=== PATIENT | female | born 1945 | race Caucasian/White ===

== ENCOUNTER → 2018-01-18 08:39 | Outpatient (CLI) | payer MEDICARE, SELFPAY ==
[2018-01-18 10:52] LABS: Thyroid Stim Hormone (TSH) 1.61 uIU/mL (0.358-3.74)
[2018-01-19 09:03] LABS: Vitamin D,25 Hydroxy 46.4 ng/mL (29.95-100.01)
== END ==
PROVIDERS: Family Provider Family Medicine; PCP Family Medicine; Visit Provider Family Medicine
DX: E55.9 Vitamin D deficiency, unspecified (principal)
CPT/HCPCS: 36415; 82306; 84443

== ENCOUNTER → 2018-02-23 09:00 | Outpatient (CLI) | payer MEDICARE, SELFPAY ==
[2018-02-23 10:24] LABS: Absolute Lymphocyte Count 1.47 X10^3/ul (0.83-4.51); Absolute Neutrophil Count 4.8 X10^3/uL (2.0-7.7); Basophil# 0.03 X10^3/uL; Basophil% 0.4 % (0-1); Eosinophil# 0.08 X10^3/uL; Eosinophils% 1.2 % (0-5); Hematocrit 36.7 % (37-47); Hemoglobin 11.7 g/dl (12.0-15.0); Lymphocyte # 1.47 X10^3/ul (4.0); Lymphocyte % 21.4 % (19-41); Mean Corp Hgb Conc 31.9 g/gl (32-36); Mean Corpuscular Hgb 31.2 pg (27.0-32.0); Mean Corpuscular Volume 97.9 fL (81-99); Mean Platelet Vol. 10.3 fl (6.2-12.0); Monocyte# 0.53 X10^3/uL; Monocyte% 7.7 % (0-10); Neutrophil # 4.76 X10^3/uL (2.7-7.7); Neutrophil % 69.2 % (47-70); Platelet Count 332 K/mm3 (150-450); RBC Distribution Width CV 13.7 % (11.6-14.6); RBC Distribution Width SD 47.5 fl (35.1-43.9); Red Blood Count 3.75 M/mm3 (4.2-5.4); White Blood Count 6.9 K/mm3 (4.4-11.0)
[2018-02-23 10:35] LABS: POSITIVE COUNT NO; POSITIVE DIFFERENTIAL NO; POSITIVE MORPHOLOGY NO
== END ==
PROVIDERS: Family Provider Family Medicine; PCP Family Medicine; Visit Provider Family Medicine
DX: M25.50 Pain in unspecified joint (principal); R53.83 Other fatigue
CPT/HCPCS: 36415; 85025; 86141

== ENCOUNTER → 2018-03-01 08:59 | Outpatient (CLI) | payer MEDICARE, SELFPAY ==
[2018-03-02 11:27] LABS: ANTINUCLEAR ANTIBODIES DIRECT Negative (Negative)
== END ==
PROVIDERS: Family Provider Family Medicine; PCP Family Medicine; Visit Provider Family Medicine
DX: M25.50 Pain in unspecified joint (principal)
CPT/HCPCS: 36415; 86038

== ENCOUNTER → 2018-03-14 10:51 | Outpatient (CLI) | payer MEDICARE, SELFPAY ==
[2018-03-14 12:24] LABS: Absolute Lymphocyte Count 2.19 X10^3/ul (0.83-4.51); Basophil# 0.04 X10^3/uL; Basophil% 0.5 % (0-1); Eosinophil# 0.05 X10^3/uL; Eosinophils% 0.6 % (0-5); Hematocrit 38.1 % (37-47); Hemoglobin 12.1 g/dl (12.0-15.0); Lymphocyte # 2.19 X10^3/ul (4.0); Lymphocyte % 24.9 % (19-41); Mean Corp Hgb Conc 31.8 g/gl (32-36); Mean Corpuscular Hgb 30.5 pg (27.0-32.0); Monocyte% 5.7 % (0-10); Neutrophil # 5.99 X10^3/uL (2.7-7.7); Neutrophil % 68.2 % (47-70); Platelet Count 342 K/mm3 (150-450); RBC Distribution Width CV 13.6 % (11.6-14.6); RBC Distribution Width SD 47.9 fl (35.1-43.9); Red Blood Count 3.97 M/mm3 (4.2-5.4); White Blood Count 8.8 K/mm3 (4.4-11.0)
[2018-03-14 12:38] LABS: POSITIVE COUNT NO; POSITIVE DIFFERENTIAL NO; POSITIVE MORPHOLOGY NO
[2018-03-14 12:39] LABS: ALB/GLOB Ratio 0.9 RATIO (0.9-2.4); AST(SGOT) 22 U/L (15-37); Alanine Aminotransfer ALT/SGPT 23 U/L (13-56); Albumin, Serum 3.7 g/dL (3.2-5.0); Alkaline Phosphatase 77 U/L (45-117); Anion Gap 10 (5-15); BUN 12 mg/dL (7-18); BUN/Creat Ratio 19.4 RATIO (10-20); Calcium,Total 9.7 mg/dL (8.5-10.1); Chloride 105 mmol/L (98-107); Creatinine, Serum 0.62 mg/dL (0.55-1.02); EST Glomerular Filtration Rate 101 mL/min (>60); Est Glom Filt Rate - Afr Amer 123 mL/min (>60); Globulin 4.1 g/dL (2.2-4.2); Glucose 92 mg/dL (74-106); Protein, Total 7.8 g/dL (6.4-8.2); Rheumatoid Factor < 10.0 IU/mL (<15); Sodium Level 141 mmol/L (136-145); T4 Total, Thyroxin 9.2 ug/dL (4.8-13.9); Thyroid Stim Hormone (TSH) 1.97 uIU/mL (0.358-3.74)
[2018-03-14 12:47] LABS: Erythrocyte Sedimentation Rate 37 mm/hr (0-30)
[2018-03-14 12:57] LABS: Vitamin B12 458 pg/mL (211-911)
[2018-03-16 11:16] LABS: ANTINUCLEAR ANTIBODIES DIRECT Negative (Negative)
== END ==
PROVIDERS: Physician Assistant; Family Provider Family Medicine; PCP Family Medicine; Visit Provider Family Medicine
DX: R53.1 Weakness (principal); M79.641 Pain in right hand; M79.642 Pain in left hand
CPT/HCPCS: 36415; 80053; 82607; 84436; 84443; 85025; 85652; 86038; 86140; 86431

== ENCOUNTER → 2018-05-02 14:18 | Outpatient (CLI) | payer MEDICARE, SELFPAY ==
--- NOTE | 2018-05-02 14:20 | RAD_ITS ---
STUDY: X-RAY - PELVIS REASON FOR EXAM: Female, 72 years old. Bilateral hip pain. TECHNIQUE: One view of the pelvis was obtained. COMPARISON: None. FINDINGS: There is a non-specific bowel gas pattern. There is calcified phleboliths, calcified uterine fibroid and postsurgical changes in the mid-pelvis. There is generalized osteopenia. Normal bilateral iliac wings, sacroiliac joints and visualized sacrum. Normal visualized bilateral superior and inferior pubic rami. Normal pubic symphysis. Normal ischial tuberosities. 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 Electronically Signed: Ashwin Farrell MD at 17:32 EDT , Service support ,
[2018-05-02 16:17] LABS: Absolute Neutrophil Count 3.9 X10^3/uL (2.0-7.7); Basophil# 0.03 X10^3/uL; Basophil% 0.5 % (0-1); Eosinophil# 0.04 X10^3/uL; Eosinophils% 0.6 % (0-5); Hematocrit 39.8 % (37-47); Hemoglobin 12.9 g/dl (12.0-15.0); Lymphocyte % 29.6 % (19-41); Mean Corp Hgb Conc 32.4 g/gl (32-36); Mean Corpuscular Hgb 31.3 pg (27.0-32.0); Mean Corpuscular Volume 96.6 fL (81-99); Mean Platelet Vol. 10.4 fl (6.2-12.0); Monocyte# 0.52 X10^3/uL; Monocyte% 8.1 % (0-10); Neutrophil # 3.92 X10^3/uL (2.7-7.7); Platelet Count 326 K/mm3 (150-450); RBC Distribution Width SD 45.1 fl (35.1-43.9); Red Blood Count 4.12 M/mm3 (4.2-5.4); White Blood Count 6.4 K/mm3 (4.4-11.0)
[2018-05-02 16:19] LABS: POSITIVE COUNT NO; POSITIVE DIFFERENTIAL NO; POSITIVE MORPHOLOGY NO
[2018-05-02 16:36] LABS: AST(SGOT) 27 U/L (15-37); Alanine Aminotransfer ALT/SGPT 30 U/L (13-56); Albumin, Serum 3.8 g/dL (3.2-5.0); Alkaline Phosphatase 76 U/L (45-117); Anion Gap 10 (5-15); BUN 11 mg/dL (7-18); BUN/Creat Ratio 17.6 RATIO (10-20); Calcium,Total 10.1 mg/dL (8.5-10.1); Chloride 105 mmol/L (98-107); Creatinine, Serum 0.62 mg/dL (0.55-1.02); EST Glomerular Filtration Rate 100 mL/min (>60); Est Glom Filt Rate - Afr Amer 121 mL/min (>60); Globulin 3.8 g/dL (2.2-4.2); Glucose 88 mg/dL (74-106); Protein, Total 7.6 g/dL (6.4-8.2); Rheumatoid Factor < 10.0 IU/mL (<15); Sodium Level 142 mmol/L (136-145)
[2018-05-04 13:05] LABS: SJOGREN'S Anti-SS-A test < 0.2 AI (0.0-0.9); SJOGREN'S Anti-SS-B test 0.6 AI (0.0-0.9)
[2018-05-04 13:30] LABS: ANTINUCLEAR ANTIBODIES DIRECT Negative (Negative)
[2018-05-11 11:12] LABS: CCP IgG Antibodies 7 units (0-19); HEPATITIS B SURFACE AG Negative (Negative); HLA B27 Negative (.); Hep B Surface Antibodies Non Reactive (.); Hep C Antibodies 0.2 s/co ratio (0.0-0.9)
== END ==
PROVIDERS: Family Provider Family Medicine; PCP Family Medicine; Visit Provider Internal Medicine Rheumatology
DX: M06.4 Inflammatory polyarthropathy (principal); M79.7 Fibromyalgia; M18.0 Bilateral primary osteoarthritis of first carpometacarpal joints; M17.0 Bilateral primary osteoarthritis of knee; K21.9 Gastro-esophageal reflux disease without esophagitis
CPT/HCPCS: 36415; 72170; 80053; 81374; 85025; 86038; 86200; 86235; 86431; 86706; 86803; 87340

== ENCOUNTER → 2018-07-12 11:36 | Outpatient (CLI) | payer MEDICARE, SELFPAY ==
[2018-07-12 13:21] LABS: Absolute Lymphocyte Count 3.96 X10^3/ul (0.83-4.51); Absolute Neutrophil Count 7.7 X10^3/uL (2.0-7.7); Basophil# 0.04 X10^3/uL; Basophil% 0.3 % (0-1); Eosinophil# 0.09 X10^3/uL; Eosinophils% 0.7 % (0-5); Hematocrit 39.1 % (37-47); Hemoglobin 12.6 g/dl (12.0-15.0); Lymphocyte # 3.96 X10^3/ul (4.0); Lymphocyte % 31.4 % (19-41); Mean Corp Hgb Conc 32.2 g/gl (32-36); Mean Corpuscular Hgb 31.9 pg (27.0-32.0); Monocyte# 0.84 X10^3/uL; Monocyte% 6.7 % (0-10); Neutrophil # 7.65 X10^3/uL (2.7-7.7); Neutrophil % 60.7 % (47-70); Platelet Count 300 K/mm3 (150-450); RBC Distribution Width CV 15.4 % (11.6-14.6); Red Blood Count 3.95 M/mm3 (4.2-5.4); White Blood Count 12.6 K/mm3 (4.4-11.0)
[2018-07-12 13:25] LABS: POSITIVE COUNT NO; POSITIVE DIFFERENTIAL NO; POSITIVE MORPHOLOGY NO
[2018-07-12 13:31] LABS: ALB/GLOB Ratio 1.1 RATIO (0.9-2.4); AST(SGOT) 17 U/L (15-37); Alanine Aminotransfer ALT/SGPT 25 U/L (13-56); Albumin, Serum 3.6 g/dL (3.2-5.0); Alkaline Phosphatase 56 U/L (45-117); Anion Gap 11 (5-15); BUN 20 mg/dL (7-18); BUN/Creat Ratio 26.5 RATIO (10-20); Calcium,Total 9.3 mg/dL (8.5-10.1); Chloride 104 mmol/L (98-107); Creatinine, Serum 0.75 mg/dL (0.55-1.02); EST Glomerular Filtration Rate 80 mL/min (>60); Est Glom Filt Rate - Afr Amer 97 mL/min (>60); Globulin 3.2 g/dL (2.2-4.2); Glucose 95 mg/dL (74-106); Potassium 3.4 mmol/L (3.5-5.1); Protein, Total 6.8 g/dL (6.4-8.2); Sodium Level 142 mmol/L (136-145)
== END ==
PROVIDERS: Family Provider Family Medicine; PCP Family Medicine; Visit Provider Internal Medicine Rheumatology
DX: M06.4 Inflammatory polyarthropathy (principal); Z79.899 Other long term (current) drug therapy; M79.7 Fibromyalgia; M35.00 Sjogren syndrome, unspecified; M18.0 Bilateral primary osteoarthritis of first carpometacarpal joints; M17.0 Bilateral primary osteoarthritis of knee; K21.9 Gastro-esophageal reflux disease without esophagitis; E78.5 Hyperlipidemia, unspecified
CPT/HCPCS: 36415; 80053; 85025

== ENCOUNTER → 2018-09-26 10:08 | Outpatient (CLI) | payer MEDICARE, SELFPAY ==
[2018-09-26 12:16] LABS: Absolute Lymphocyte Count 2.64 X10^3/ul (0.83-4.51); Absolute Neutrophil Count 3.9 X10^3/uL (2.0-7.7); Basophil# 0.03 X10^3/uL; Basophil% 0.4 % (0-1); Eosinophil# 0.08 X10^3/uL; Eosinophils% 1.1 % (0-5); Hematocrit 38.6 % (37-47); Hemoglobin 12.4 g/dl (12.0-15.0); Lymphocyte # 2.64 X10^3/ul (4.0); Lymphocyte % 36.5 % (19-41); Mean Corp Hgb Conc 32.1 g/gl (32-36); Mean Corpuscular Hgb 33.5 pg (27.0-32.0); Mean Corpuscular Volume 104.3 fL (81-99); Mean Platelet Vol. 10.3 fl (6.2-12.0); Monocyte# 0.58 X10^3/uL; Neutrophil # 3.89 X10^3/uL (2.7-7.7); Neutrophil % 53.9 % (47-70); Platelet Count 291 K/mm3 (150-450); RBC Distribution Width CV 13.4 % (11.6-14.6); RBC Distribution Width SD 49.8 fl (35.1-43.9); White Blood Count 7.2 K/mm3 (4.4-11.0)
[2018-09-26 12:22] LABS: POSITIVE COUNT NO; POSITIVE DIFFERENTIAL NO; POSITIVE MORPHOLOGY NO
[2018-09-26 12:45] LABS: ALB/GLOB Ratio 1.2 RATIO (0.9-2.4); AST(SGOT) 24 U/L (15-37); Alanine Aminotransfer ALT/SGPT 28 U/L (13-56); Albumin, Serum 3.6 g/dL (3.2-5.0); Alkaline Phosphatase 60 U/L (45-117); Anion Gap 10 (5-15); BUN 11 mg/dL (7-18); BUN/Creat Ratio 14.9 RATIO (10-20); Calcium,Total 9.3 mg/dL (8.5-10.1); Chloride 107 mmol/L (98-107); Creatinine, Serum 0.74 mg/dL (0.55-1.02); EST Glomerular Filtration Rate 83 mL/min (>60); Est Glom Filt Rate - Afr Amer 100 mL/min (>60); Globulin 3.1 g/dL (2.2-4.2); Glucose 90 mg/dL (74-106); Potassium 3.7 mmol/L (3.5-5.1); Protein, Total 6.7 g/dL (6.4-8.2); Sodium Level 143 mmol/L (136-145)
--- OUTSIDE RECORDS SUMMARY | 2018-11-19 15:04 | XMS RPT_ITS ---
:1945 Author Organization OHIP Care Team Providers Name Role Phone NICO RAINEY Referring Unavailable Nico Rainey Attending Unavailable Nico Rainey Referring Unavailable Nico Rainey Primary Care Unavailable Nico Rainey Attending Unavailable Nico Rainey Primary Care Unavailable Nico Rainey Attending Unavailable Nico Rainey Primary Care Unavailable Nico Rainey Primary Care Unavailable Ty Costa Attending Unavailable Ty Costa Referring Unavailable Jessa Torres Attending Unavailable Jessa Torres Referring Unavailable Nico Rainey Primary Care Unavailable Jessa Torres Attending Unavailable Jessa Torres Referring Unavailable Nico Rainey Primary Care Unavailable Jessa Torres Attending Unavailable Jessa Torres Referring Unavailable Nico Rainey Primary Care Unavailable PROBLEMS PROBLEMS DATE TYPE CONDITION / CODE ATTENDING STATUS SOURCE 09/26/2018 Unknown M06.4 - Inflammatory Vellanki, 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 / Community M06.4(ICD-10) Hospital Repository 09/26/2018 Unknown M79.7 - Fibromyalgia Veladi Jessa Active [facility] / M79.7(ICD-10) Community Hospital Repository 09/26/2018 Unknown M18.0 - Bilateral Vellanhenrry, Jessa Active [facility] primary Community osteoarthritis of Hospital first carpometacarpal Repository joints / M18.0(ICD-10) 09/26/2018 Unknown M17.0 - Bilateral Vellanki, Jessa Active [facility] primary Community osteoarthritis of Hospital knee / M17.0(ICD-10) Repository 09/26/2018 Unknown K21.9 - Vellanhenrry Jessa Active [facility] Gastro-esophageal Community reflux disease Hospital without esophagitis / Repository K21.9(ICD-10) 09/26/2018 Unknown Z79.899 - Other long Melissa Jessa Active [facility] term (current) drug Community therapy / Hospital Z79.899(ICD-10) Repository 09/26/2018 Unknown E78.5 - Vellanhenrry Jessa Active [facility] Hyperlipidemia, Community unspecified / Hospital E78.5(ICD-10) Repository 09/26/2018 Unknown 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 Hospital Repository 03/03/2018 Active Unknown / NA Active [facility] UNK(Unknown) [facility] [place] Repository 02/23/2018 Unknown M25.50 - Pain in Mercedes Nico Active [facility] unspecified joint / Community M25.50(ICD-10) Hospital Repository 02/23/2018 Unknown R53.83 - Other Nico Rainey Active [facility] fatigue / Community R53.83(ICD-10) Hospital Repository 01/18/2018 Unknown E55.9 - Vitamin D Nico Rainey Active [facility] deficiency, Community unspecified / Hospital E55.9(ICD-10) Repository 01/18/2018 Unknown 268.9 - Unspecified Nico Rainey Active [facility] vitamin D deficiency Community / 268.9(ICD-9) Hospital Repository PROCEDURES PROCEDURES No Procedure Records FoundRESULTS RESULTS CBC W/DIFF, AUTOMATED Collected: 09/26/2018 Status: F Source: [place] 10:12 AM [facility] REPOSITORY TYPE CODE TESTS RESULT OUT OF RANGE REFERENCE UNITS LAB L100.1000 4.4-11.0 K/mm3 Normal WBC 7.2 LAB L100.1200 4.2-5.4 M/mm3 Low RBC 3.70 LAB L100.1300 12.0-15.0 g/dl Normal HGB 12.4 LAB L100.1400 37-47 % Normal HCT 38.6 LAB L100.1500 81-99 fL High MCV 104.3 LAB L100.1600 27.0-32.0 pg High MCH 33.5 LAB L100.1700 32-36 g/gl Normal MCHC 32.1 LAB L100.1810 11.6-14.6 % Normal RDW CV 13.4 LAB L100.1820 35.1-43.9 fl High RDW SD 49.8 LAB L100.1900 150-450 K/mm3 Normal PLT 291 LAB L100.2000 6.2-12.0 fl Normal MPV 10.3 LAB L100.2100 47-70 % Normal NEUT% 53.9 LAB L100.2200 19-41 % Normal LY% 36.5 LAB L100.2300 0-10 % Normal MONO% 8.0 LAB L100.2400 0-5 % Normal EO% 1.1 LAB L100.2500 0-1 % Normal BASO% 0.4 LAB L100.2550 0.0-0.9 % Normal IM GRAN % 0.100 Result Comment: IG% - Immature Granulocytes (promyelocytes, myelocytes and metamyelocytes) > 1% indicates that a LEFT SHIFT is Present. LAB L100.2620 2.0-7.7 X10 3/uL Normal Absolute Neut 3.9 LAB L100.2720 0.83-4.51 X10 3/ul Normal Absolute Lymph 2.64 Performed By: #### L100.0100 #### [facility] [address] [place], [address] COMPREHENSIVE METABOLIC Collected: 09/26/2018 Status: F Source: [place] [facility] 10:12 AM [facility] REPOSITORY TYPE CODE TESTS RESULT OUT OF RANGE REFERENCE UNITS LAB L501.0100 74-106 mg/dL Normal GLU 90 Result Comment: Please note revised GLUCOSE reference range effective 2017. LAB L501.1000 7-18 mg/dL Normal BUN 11 LAB L501.1100 0.55-1.02 mg/dL Normal CREAT,SERUM 0.74 Result Comment: The validity of the calculated GFR AND GFRAA in patients over 70 years has not been determined. Clinical correlation is essential. LAB L501.1110 >60 mL/min Normal EST GFR 83 Result Comment: Non- GFR Calc LAB L501.1115 >60 mL/min Normal EST GFR - AA 100 Result Comment: GFR Calc LAB L501.1300 10-20 RATIO Normal BUN/CRE 14.9 LAB L501.1500 6.4-8.2 g/dL T Normal PROT 6.7 LAB L501.1800 3.2-5.0 g/dL Normal ALB 3.6 LAB L501.1950 2.2-4.2 g/dL Normal GLOB 3.1 LAB L501.2000 0.9-2.4 RATIO Normal A/G 1.2 LAB L501.2200 8.5-10.1 mg/dL CA Normal 9.3 LAB L501.4100 15-37 U/L Normal AST 24 LAB L501.4305 45-117 U/L Normal ALK P 60 LAB L501.4405 13-56 U/L Normal ALT 28 LAB L501.4600 0.20-1.00 mg/dL T Normal BILI 0.50 LAB L501.5300 136-145 mmol/L NA Normal 143 LAB L501.5600 3.5-5.1 mmol/L K Normal 3.7 LAB L501.5900 98-107 mmol/L CL Normal 107 LAB L501.6100 21.0-32.0 mmol/L Normal CO2 26.0 LAB L501.6200 5-15 Normal GAP 10 Performed By: #### L500.4050 #### [facility] [address] [place], [address] CBC W/DIFF, AUTOMATED Collected: 07/12/2018 Status: F Source: [place] 11:43 AM [facility] REPOSITORY TYPE CODE TESTS RESULT OUT OF RANGE REFERENCE UNITS LAB L100.1000 4.4-11.0 K/mm3 High WBC 12.6 LAB L100.1200 4.2-5.4 M/mm3 Low RBC 3.95 LAB L100.1300 12.0-15.0 g/dl Normal HGB 12.6 LAB L100.1400 37-47 % Normal HCT 39.1 LAB L100.1500 81-99 fL Normal MCV 99.0 LAB L100.1600 27.0-32.0 pg Normal MCH 31.9 LAB L100.1700 32-36 g/gl Normal MCHC 32.2 LAB L100.1810 11.6-14.6 % High RDW CV 15.4 LAB L100.1820 35.1-43.9 fl High RDW SD 56.0 LAB L100.1900 150-450 K/mm3 Normal PLT 300 LAB L100.2000 6.2-12.0 fl Normal MPV 10.0 LAB L100.2100 47-70 % Normal NEUT% 60.7 LAB L100.2200 19-41 % Normal LY% 31.4 LAB L100.2300 0-10 % Normal MONO% 6.7 LAB L100.2400 0-5 % Normal EO% 0.7 LAB L100.2500 0-1 % Normal BASO% 0.3 LAB L100.2550 0.0-0.9 % Normal IM GRAN % 0.200 Result Comment: IG% - Immature Granulocytes (promyelocytes, myelocytes and metamyelocytes) > 1% indicates that a LEFT SHIFT is Present. LAB L100.2620 2.0-7.7 X10 3/uL Normal Absolute Neut 7.7 LAB L100.2720 0.83-4.51 X10 3/ul Normal Absolute Lymph 3.96 Performed By: #### L100.0100 #### [facility] [address] [place], [address] COMPREHENSIVE METABOLIC Collected: 07/12/2018 Status: F Source: [place] [facility] 11:43 AM [facility] REPOSITORY TYPE CODE TESTS RESULT OUT OF RANGE REFERENCE UNITS LAB L501.0100 74-106 mg/dL Normal GLU 95 Result Comment: Please note revised GLUCOSE reference range effective 2017. LAB L501.1000 7-18 mg/dL High BUN 20 LAB L501.1100 0.55-1.02 mg/dL Normal CREAT,SERUM 0.75 Result Comment: The validity of the calculated GFR AND GFRAA in patients over 70 years has not been determined. Clinical correlation is essential. LAB L501.1110 >60 mL/min Normal EST GFR 80 Result Comment: Non- GFR Calc LAB L501.1115 >60 mL/min Normal EST GFR - AA 97 Result Comment: GFR Calc LAB L501.1300 10-20 RATIO High BUN/CRE 26.5 LAB L501.1500 6.4-8.2 g/dL T Normal PROT 6.8 LAB L501.1800 3.2-5.0 g/dL Normal ALB 3.6 LAB L501.1950 2.2-4.2 g/dL Normal GLOB 3.2 LAB L501.2000 0.9-2.4 RATIO Normal A/G 1.1 LAB L501.2200 8.5-10.1 mg/dL CA Normal 9.3 LAB L501.4100 15-37 U/L Normal AST 17 LAB L501.4305 45-117 U/L Normal ALK P 56 LAB L501.4405 13-56 U/L Normal ALT 25 LAB L501.4600 0.20-1.00 mg/dL T Normal BILI 0.40 LAB L501.5300 136-145 mmol/L NA Normal 142 LAB L501.5600 3.5-5.1 mmol/L Low K 3.4 LAB L501.5900 98-107 mmol/L CL Normal 104 LAB L501.6100 21.0-32.0 mmol/L Normal CO2 27.0 LAB L501.6200 5-15 Normal GAP 11 Performed By: #### L500.4050 #### [facility] [address] [place], [place], [id number] CBC W/DIFF, AUTOMATED Collected: 05/02/2018 Status: F Source: [place] 2:28 PM [facility] REPOSITORY TYPE CODE TESTS RESULT OUT OF RANGE REFERENCE UNITS LAB L100.1000 4.4-11.0 K/mm3 Normal WBC 6.4 LAB L100.1200 4.2-5.4 M/mm3 Low RBC 4.12 LAB L100.1300 12.0-15.0 g/dl Normal HGB 12.9 LAB L100.1400 37-47 % Normal HCT 39.8 LAB L100.1500 81-99 fL Normal MCV 96.6 LAB L100.1600 27.0-32.0 pg Normal MCH 31.3 LAB L100.1700 32-36 g/gl Normal MCHC 32.4 LAB L100.1810 11.6-14.6 % Normal RDW CV 13.0 LAB L100.1820 35.1-43.9 fl High RDW SD 45.1 LAB L100.1900 150-450 K/mm3 Normal PLT 326 LAB L100.2000 6.2-12.0 fl Normal MPV 10.4 LAB L100.2100 47-70 % Normal NEUT% 61.0 LAB L100.2200 19-41 % Normal LY% 29.6 LAB L100.2300 0-10 % Normal MONO% 8.1 LAB L100.2400 0-5 % Normal EO% 0.6 LAB L100.2500 0-1 % Normal BASO% 0.5 LAB L100.2550 0.0-0.9 % Normal IM GRAN % 0.200 Result Comment: IG% - Immature Granulocytes (promyelocytes, myelocytes and metamyelocytes) > 1% indicates that a LEFT SHIFT is Present. LAB L100.2620 2.0-7.7 X10 3/uL Normal Absolute Neut 3.9 LAB L100.2720 0.83-4.51 X10 3/ul Normal Absolute Lymph 1.90 Performed By: #### L100.0100 #### [facility] [address] [place], [address] COMPREHENSIVE METABOLIC Collected: 05/02/2018 Status: F Source: [facility] 2:28 PM [facility] REPOSITORY TYPE CODE TESTS RESULT OUT OF RANGE REFERENCE UNITS LAB L501.0100 74-106 mg/dL Normal GLU 88 Result Comment: Please note revised GLUCOSE reference range effective 2017. LAB L501.1000 7-18 mg/dL Normal BUN 11 LAB L501.1100 0.55-1.02 mg/dL Normal CREAT,SERUM 0.62 Result Comment: The validity of the calculated GFR AND GFRAA in patients over 70 years has not been determined. Clinical correlation is essential. LAB L501.1110 >60 mL/min Normal EST GFR 100 Result Comment: Non- GFR Calc LAB L501.1115 >60 mL/min Normal EST GFR - AA 121 Result Comment: GFR Calc LAB L501.1300 10-20 RATIO Normal BUN/CRE 17.6 LAB L501.1500 6.4-8.2 g/dL T Normal PROT 7.6 LAB L501.1800 3.2-5.0 g/dL Normal ALB 3.8 LAB L501.1950 2.2-4.2 g/dL Normal GLOB 3.8 LAB L501.2000 0.9-2.4 RATIO Normal A/G 1.0 LAB L501.2200 8.5-10.1 mg/dL CA Normal 10.1 LAB L501.4100 15-37 U/L Normal AST 27 LAB L501.4305 45-117 U/L Normal ALK P 76 LAB L501.4405 13-56 U/L Normal ALT 30 LAB L501.4600 0.20-1.00 mg/dL T Normal BILI 0.30 LAB L501.5300 136-145 mmol/L NA Normal 142 LAB L501.5600 3.5-5.1 mmol/L K Normal 4.0 LAB L501.5900 98-107 mmol/L CL Normal 105 LAB L501.6100 21.0-32.0 mmol/L Normal CO2 27.0 LAB L501.6200 5-15 Normal GAP 10 Performed By: #### L500.4050, L505.7010 #### [facility] [address] [place], [place], [id number] RHEUMATOID FACTOR Collected: 05/02/2018 Status: F Source: [place] 2:28 PM [facility] REPOSITORY TYPE CODE TESTS RESULT OUT OF RANGE REFERENCE UNITS LAB L505.7010 <15 IU/mL Normal RHEUMATOID FAC < 10.0 Performed By: #### L500.4050, L505.7010 #### [facility] [address] [place], [place], [id number] ANTINUCLEAR ANTIBODIES Collected: 05/02/2018 Status: F Source: [place] DIRECT 2:28 PM [facility] REPOSITORY TYPE CODE TESTS RESULT OUT OF RANGE REFERENCE UNITS LAB L3100.5475 Negative Normal Negative KATHARINA-DIRECT Result Comment: Performed at: - [address] [id number] Corporate Development Manager: Robe Quezada PhD, Phone: [phone] Performed By: #### L3100.5475, L3100.9100 #### [facility] (refer to report for specific site) refer to report for address and phone number SJOGREN'S ANTIBODIES Collected: 05/02/2018 Status: F Source: [place] A/B 2:28 PM [facility] REPOSITORY TYPE CODE TESTS RESULT OUT OF RANGE REFERENCE UNITS LAB L3100.9200 0.0-0.9 AI Normal Anti-SS-A < 0.2 LAB L3100.9300 0.0-0.9 AI Normal Anti-SS-B 0.6 Performed By: #### L3100.5475, L3100.9100 #### [facility] (refer to report for specific site) refer to report for address and phone number HEPATITIS B SURFACE Collected: 05/02/2018 Status: F Source: [place] AG 2:28 PM [facility] REPOSITORY TYPE CODE TESTS RESULT OUT OF RANGE REFERENCE UNITS LAB L3100.0400 Negative Normal HB Negative SURF AG Result Comment: Performed at: [facility] [address] [id number] Corporate Development Manager: Robe Quezada PhD, Phone: [phone] Performed at: 2 - [address] [id number] Corporate Development Manager: Luis Alfredo Saleem PhD, Phone: [phone] Performed at: - [address] [id number] Corporate Development Manager: Shiraz Joya MD, Phone: [phone] Performed By: #### L3100.0390, L3100.0528, L3100.0625, L3410.1400, L4600.0100 #### [facility] (refer to report for specific site) refer to report for address and phone number HEP B SURFACE Collected: 05/02/2018 Status: F Source: [place] ANTIBODIES 2:28 PM [facility] REPOSITORY TYPE CODE TESTS RESULT OUT OF RANGE REFERENCE UNITS LAB L3100.0528 . Normal Hep B Non Reactive Kane AB Result Comment: Non Reactive: Inconsistent with immunity, less than 10 mIU/mL Reactive: Consistent with immunity, greater than 9.9 mIU/mL Performed By: #### L3100.0390, L3100.0528, L3100.0625, L3410.1400, L4600.0100 #### [facility] (refer to report for specific site) refer to report for address and phone number HEPATITIS C ANTIBODIES Collected: 05/02/2018 Status: F Source: [place] 2:28 [facility] REPOSITORY TYPE CODE TESTS RESULT OUT OF RANGE REFERENCE UNITS LAB L3100.0650 0.0-0.9 s/co ratio Normal HEP C AB 0.2 Result Comment: Negative: < 0.8 Indeterminate: 0.8 - 0.9 Positive: > 0.9 The CDC recommends that a positive HCV antibody result be followed up with a HCV Nucleic Acid Amplification test (091933). Performed By: #### L3100.0390, L3100.0528, L3100.0625, L3410.1400, L4600.0100 #### [facility] (refer to report for specific site) refer to report for address and phone number HLA B27 Collected: 05/02/2018 Status: F Source: [place] 2:28 [facility] REPOSITORY TYPE CODE TESTS RESULT OUT OF RANGE REFERENCE UNITS LAB L3410.1500 . Normal HLA Negative B27 Result Comment: HLA-B*27 Negative B27 allele interpretation for all loci based on IMGT/HLA database version 3.27 This test was developed and its performance characteristics determined by [facility]. It has not been cleared or approved by the Food and Drug Administration. [facility] CLIA ID Number [id number] This test was performed using PCR (Polymerase Chain Reaction)/SSOP (Sequence Specific Oligonucleotide Probes) technique. SBT (Sequence Based Typing) and/or SSP (Sequence Specific Primers) may be used as supplemental methods when necessary. Please contact [facility] Customer Service at if you have any questions. Director of [facility] Laboratory Dr Luis Alfredo Saleem, PhD Performed By: #### L3100.0390, L3100.0528, L3100.0625, L3410.1400, L4600.0100 #### [facility] (refer to report for specific site) refer to report for address and phone number CCP IGG ANTIBODIES Collected: 05/02/2018 Status: F Source: [place] 2:28 PM [facility] REPOSITORY TYPE CODE TESTS RESULT OUT OF RANGE REFERENCE UNITS LAB L4600.0100 0-19 units Normal ANTI-CCP 7 188119 Result Comment: Negative <20 Weak positive 20 - 39 Moderate positive 40 - 59 Strong positive >59 Performed By: #### L3100.0390, L3100.0528, L3100.0625, L3410.1400, L4600.0100 #### [facility] (refer to report for specific site) refer to report for address and phone number PELVIS 1 OR 2 VIEWS Observed: 05/02/2018 Status: F Source: [place] 2:21 PM [facility] REPOSITORY [facility] Services [address] [place] [address] Pelvis 1 or 2 Views MR#: [id number] Acct: [id number] Name: HEYDI NGUYEN Rep #: [id number] : 1945 F 72 From: Ashwin Farrell MD PCP: Nico Rainey MD Status: REG CLI Study: Pelvis 1 or 2 Views Date of Exam: 05/02/18 Exam# [id number] Ordering Dr: Jessa Torres MD STUDY: X-RAY - PELVIS REASON FOR EXAM: Female, 72 years old. Bilateral hip pain. TECHNIQUE: One view of the pelvis was obtained. COMPARISON: None. FINDINGS: There is a non-specific bowel gas pattern. There is calcified phleboliths, calcified uterine fibroid and postsurgical changes in the mid-pelvis. There is generalized osteopenia. Normal bilateral iliac wings, sacroiliac joints and visualized sacrum. Normal visualized bilateral superior and inferior pubic rami. Normal pubic symphysis. Normal ischial tuberosities. 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 Electronically Signed: Ashwin Farrell MD at 17:32 EDT , Service support , CC: Jessa Torres MD; Nico Rainey MD Painter: Signed CBC W/DIFF, AUTOMATED Collected: 03/14/2018 Status: F Source: [place] 11:04 AM [facility] REPOSITORY TYPE CODE TESTS RESULT OUT OF RANGE REFERENCE UNITS LAB L100.1000 4.4-11.0 K/mm3 Normal WBC 8.8 LAB L100.1200 4.2-5.4 M/mm3 Low RBC 3.97 LAB L100.1300 12.0-15.0 g/dl Normal HGB 12.1 LAB L100.1400 37-47 % Normal HCT 38.1 LAB L100.1500 81-99 fL Normal MCV 96.0 LAB L100.1600 27.0-32.0 pg Normal MCH 30.5 LAB L100.1700 32-36 g/gl Low MCHC 31.8 LAB L100.1810 11.6-14.6 % Normal RDW CV 13.6 LAB L100.1820 35.1-43.9 fl High RDW SD 47.9 LAB L100.1900 150-450 K/mm3 Normal PLT 342 LAB L100.2000 6.2-12.0 fl Normal MPV 10.0 LAB L100.2100 47-70 % Normal NEUT% 68.2 LAB L100.2200 19-41 % Normal LY% 24.9 LAB L100.2300 0-10 % Normal MONO% 5.7 LAB L100.2400 0-5 % Normal EO% 0.6 LAB L100.2500 0-1 % Normal BASO% 0.5 LAB L100.2550 0.0-0.9 % Normal IM GRAN % 0.100 Result Comment: IG% - Immature Granulocytes (promyelocytes, myelocytes and metamyelocytes) > 1% indicates that a LEFT SHIFT is Present. LAB L100.2620 2.0-7.7 X10 3/uL Normal Absolute Neut 6.0 LAB L100.2720 0.83-4.51 X10 3/ul Normal Absolute Lymph 2.19 Performed By: #### L100.0100, L101.9900 #### [facility] [address] [place], [address] ERYTHROCYTE SED RATE Collected: 03/14/2018 Status: F Source: [place] 11:04 AM [facility] REPOSITORY TYPE CODE TESTS RESULT OUT OF RANGE REFERENCE UNITS LAB L102.0000 0-30 mm/hr High SED RATE 37 Performed By: #### L100.0100, L101.9900 #### [facility] [address] [place], [address] COMPREHENSIVE METABOLIC Collected: 03/14/2018 Status: F [facility] AM [facility] REPOSITORY TYPE CODE TESTS RESULT OUT OF RANGE REFERENCE UNITS LAB L501.0100 74-106 mg/dL Normal GLU 92 Result Comment: Please note revised GLUCOSE reference range effective 2017. LAB L501.1000 7-18 mg/dL Normal BUN 12 LAB L501.1100 0.55-1.02 mg/dL Normal CREAT,SERUM 0.62 Result Comment: The validity of the calculated GFR AND GFRAA in patients over 70 years has not been determined. Clinical correlation is essential. LAB L501.1110 >60 mL/min Normal EST GFR 101 Result Comment: Non- GFR Calc LAB L501.1115 >60 mL/min Normal EST GFR - AA 123 Result Comment: GFR Calc LAB L501.1300 10-20 RATIO Normal BUN/CRE 19.4 LAB L501.1500 6.4-8.2 g/dL T Normal PROT 7.8 LAB L501.1800 3.2-5.0 g/dL Normal ALB 3.7 LAB L501.1950 2.2-4.2 g/dL Normal GLOB 4.1 LAB L501.2000 0.9-2.4 RATIO Normal A/G 0.9 LAB L501.2200 8.5-10.1 mg/dL CA Normal 9.7 LAB L501.4100 15-37 U/L Normal AST 22 LAB L501.4305 45-117 U/L Normal ALK P 77 LAB L501.4405 13-56 U/L Normal ALT 23 LAB L501.4600 0.20-1.00 mg/dL T Normal BILI 0.40 LAB L501.5300 136-145 mmol/L NA Normal 141 LAB L501.5600 3.5-5.1 mmol/L K Normal 4.0 LAB L501.5900 98-107 mmol/L CL Normal 105 LAB L501.6100 21.0-32.0 mmol/L Normal CO2 26.0 LAB L501.6200 5-15 Normal GAP 10 Performed By: #### L500.4050, L501.6710, L501.9310, L501.9520, L505.7010 #### [facility] [address] [place], [address] CRP Collected: 03/14/2018 Status: F Source: [place] 11:04 AM [facility] REPOSITORY TYPE CODE TESTS RESULT OUT OF RANGE REFERENCE UNITS LAB L501.6710 0.0-3.0 mg/L High 28.80 C-REACTIVE PROT Result Comment: C-Reactive Protein (CRP) provides useful information for the diagnosis, therapy and monitoring of inflammatory processes and associated diseases. For the evaluation of Relative Risk for Cardiovascular Disease, a High Sensitivity CRP (HSCRP) should be ordered. Performed By: #### L500.4050, L501.6710, L501.9310, L501.9520, L505.7010 #### [facility] [address] [place], [place], [id number] T4 TOTAL, THYROXIN Collected: 03/14/2018 Status: F Source: [place] 11:04 AM [facility] REPOSITORY TYPE CODE TESTS RESULT OUT OF RANGE REFERENCE UNITS LAB L501.9310 4.8-13.9 ug/dL T4 Normal THYROXIN 9.2 Performed By: #### L500.4050, L501.6710, L501.9310, L501.9520, L505.7010 #### [facility] [address] [place], [place], [address] THYROID STIM HORMONE Collected: 03/14/2018 Status: F Source: [place] ([facility]) 11:04 AM [facility] REPOSITORY TYPE CODE TESTS RESULT OUT OF RANGE REFERENCE UNITS LAB L501.9520 0.358-3.74 uIU/mL Normal TSH 1.97 Performed By: #### L500.4050, L501.6710, L501.9310, L501.9520, L505.7010 #### [facility] [address] [place], [address] RHEUMATOID FACTOR Collected: 03/14/2018 Status: F Source: [place] 11:04 AM [facility] REPOSITORY TYPE CODE TESTS RESULT OUT OF RANGE REFERENCE UNITS LAB L505.7010 <15 IU/mL Normal RHEUMATOID FAC < 10.0 Performed By: #### L500.4050, L501.6710, L501.9310, L501.9520, L505.7010 #### [facility] [address] [place], [address] VITAMIN B12 Collected: 03/14/2018 Status: F Source: [place] 11:04 AM [facility] REPOSITORY TYPE CODE TESTS RESULT OUT OF RANGE REFERENCE UNITS LAB L503.0105 211-911 pg/mL Normal Vitamin B12 458 Performed By: #### L503.0105 #### [facility] [address] [place], [address] ANTINUCLEAR ANTIBODIES Collected: 03/14/2018 Status: F Source: [place] [facility] 11:04 AM [facility] REPOSITORY TYPE CODE TESTS RESULT OUT OF RANGE REFERENCE UNITS LAB L3100.5475 Negative Normal Negative KATHARINA-DIRECT Result Comment: Performed at: - [facility] [id number] Corporate Development Manager: Robe Quezada PhD, Phone: [phone] Performed By: #### L3100.5475 #### [facility] (refer to report for specific site) refer to report for address and phone number [facility] Observed: 03/03/2018 Status: COMPLETED Source: [place] 9:22 AM [facility] REPOSITORY HNO ID: [id number] Author: Coordinator, Mammography Service: (none) Author Type: Physician Type: Letter Filed: 03/07/2018 11:31 PM Note Text: March 03, 2018 PID: [id number] Heyid Nguyen [address] [place] [id number] Dear Ms. Nguyen, We are pleased to inform you that the results of your recent breast imaging exam on 03/03/2018 are normal. Early detection of cancer is very important. We also understand recommendations regarding breast cancer screening are controversial. Please discuss with your primary care provider which strategy is best for you and whether a mammogram is right for you. Your imaging studies and report will be kept on file at [facility] as part of your permanent medical record and are available for your continuing care. Thank you for allowing us to help in meeting your health care needs. Sincerely, Dr. Smith Interpreting Radiologist [facility] (Normal over 40) [facility] SCREENING Observed: 03/03/2018 Status: F Source: [place] 9:18 AM [facility] REPOSITORY * * *Final Report* * * DATE OF EXAM: Mar 03 2018 9:18AM [facility] [id number] - [facility] SCREENING / PROCEDURE REASON: Routine Screening * * * * Physician Interpretation * * * * RESULT: #[id number] - [facility] SCREENING BILATERAL DIGITAL SCREENING MAMMOGRAM WITH CAD: 03/03/2018 HISTORY: Screening Mammogram - patient reports NO breast symptoms /priors available for comparison. RESULT: TECHNIQUE: The study was acquired using full field digital technology and interpreted from soft copy. Current study was also evaluated with a Computer Aided Detection (CAD). Comparison is made to exams dated: 03/01/2017 mammogram, 02/25/2016 mammogram, and 02/20/2015 mammogram - [facility]. There are scattered fibroglandular elements in both breasts. No significant masses, calcifications, or other findings are seen in either breast. There has been no significant interval change. IMPRESSION: NEGATIVE There is no mammographic evidence of malignancy. A 1 year screening mammogram is recommended. The exam was reviewed by a staff physician. dann Bryant M.D., M.D./kendrick:03/03/2018 09:22:22 Four Slide Machine Operator: Merlyn JIMENEZ(Shankar)(Stacey), [facility] letter sent: Normal over 40 Mammogram BI-RADS: 1 Negative Painter: Kendrick Transcribe Date/Time: Mar 03 2018 9:02A Dictated by: ARABELLA VALERIO MD This examination was interpreted and the report reviewed and electronically signed by: ROSA MARIA SMITH MD on Mar 03 2018 9:22AM EST [id number] PROGRESS Observed: 03/03/2018 Status: COMPLETED Source: [place] 8:59 AM [facility] REPOSITORY HNO ID: [id number] Author: Geneva Bacon Service: (none) Author Type: (none) Type: Progress Notes Filed: 03/03/2018 9:00 AM Note Text: Radiology Service Progress Note PATIENT NAME: Heydi Nguyen DATE OF SERVICE: March 03, 2018 TIME: 9:00 AM PATIENT IDENTITY VERIFICATION COMPLETED USING TWO (2) METHODS: Patient confirmed name verbally and Date of . PATIENT GENDER DATA: Female. status: : No status: NO. PATIENT RELEVANT IMPLANT DATA REVIEWED: Not Applicable RADIOLOGY DEPARTMENT: [facility] DATA: Not applicable SIGNED BY: Geneva Jimenez March 03, 2018 9:00 AM ANTINUCLEAR ANTIBODIES Collected: 03/01/2018 Status: F Source: [place] DIRECT 9:00 AM [facility] REPOSITORY Order Comment: Order Date: 02/23/18 Order Info: 0270-1 - KATHARINA TYPE CODE TESTS RESULT OUT OF RANGE REFERENCE UNITS LAB L3100.5475 Negative Normal Negative KATHARINA-DIRECT Result Comment: Performed at: [address] [id number] Corporate Development Manager: Robe Quezada PhD, Phone: [phone] Performed By: #### L3100.5475 #### [facility] (refer to report for specific site) refer to report for address and phone number CBC W/DIFF, AUTOMATED Collected: 02/23/2018 Status: F Source: [place] 9:01 AM [facility] REPOSITORY TYPE CODE TESTS RESULT OUT OF RANGE REFERENCE UNITS LAB L100.1000 4.4-11.0 K/mm3 Normal WBC 6.9 LAB L100.1200 4.2-5.4 M/mm3 Low RBC 3.75 LAB L100.1300 12.0-15.0 g/dl Low HGB 11.7 LAB L100.1400 37-47 % Low HCT 36.7 LAB L100.1500 81-99 fL Normal MCV 97.9 LAB L100.1600 27.0-32.0 pg Normal MCH 31.2 LAB L100.1700 32-36 g/gl Low MCHC 31.9 LAB L100.1810 11.6-14.6 % Normal RDW CV 13.7 LAB L100.1820 35.1-43.9 fl High RDW SD 47.5 LAB L100.1900 150-450 K/mm3 Normal PLT 332 LAB L100.2000 6.2-12.0 fl Normal MPV 10.3 LAB L100.2100 47-70 % Normal NEUT% 69.2 LAB L100.2200 19-41 % Normal LY% 21.4 LAB L100.2300 0-10 % Normal MONO% 7.7 LAB L100.2400 0-5 % Normal EO% 1.2 LAB L100.2500 0-1 % Normal BASO% 0.4 LAB L100.2550 0.0-0.9 % Normal IM GRAN % 0.100 Result Comment: IG% - Immature Granulocytes (promyelocytes, myelocytes and metamyelocytes) > 1% indicates that a LEFT SHIFT is Present. LAB L100.2620 2.0-7.7 X10 3/uL Normal Absolute Neut 4.8 LAB L100.2720 0.83-4.51 X10 3/ul Normal Absolute Lymph 1.47 Performed By: #### L100.0100 #### [facility] [address] [place], [address] CRP, HIGH SENSITIVITY Collected: 02/23/2018 Status: F Source: [place] CARDIAC 9:01 AM [facility] REPOSITORY TYPE CODE TESTS RESULT OUT OF RANGE REFERENCE UNITS LAB L501.6750 mg/L High CRP HIGH 21.20 SENS Result Comment: Low Relative Risk of CVD <1.0 mg/L Average Relative Risk of CVD 1.0 - 3.0 mg/L High Relative Risk of CVD >3.0 mg/L Performed By: #### L501.6750 #### [facility] [address] [place], [address] THYROID STIM HORMONE Collected: 01/18/2018 Status: F Source: [place] (TSH) 8:46 AM [facility] REPOSITORY Order Comment: Order Date: 11/03/17 Order Info: 3016-3 - TSH TYPE CODE TESTS RESULT OUT OF RANGE REFERENCE UNITS LAB L501.9520 0.358-3.74 uIU/mL Normal TSH 1.61 Performed By: #### L501.9520, L506.1000 #### [facility] [address] [place], [address] VITAMIN D,25 HYDROXY Collected: 01/18/2018 Status: F Source: [place] 8:46 AM [facility] REPOSITORY Order Comment: Order Date: 11/03/17 Order Info: 26825-0 - VITD25 TYPE CODE TESTS RESULT OUT OF RANGE REFERENCE UNITS LAB L506.1000 29.95-100.01 ng/mL Normal Vitamin D 46.4 25-OH Result Comment: Vitamin D 25(OH) Status Range Deficiency <20 ng/mL (50nmol/L) Insuffciency 20 - 30 ng/mL (50 - 75 nmol/L) Sufficiency 30 - 100 ng/mL (75 - 250 nmol/L) Toxicity >100 ng/mL (>250 nmol/L) Performed By: #### L501.9520, L506.1000 #### [facility] [address] [place], [place], [address] ALLERGIES ALLERGIES DATE TYPE / CODE NAME / CODE REACTION SEVERITY SOURCE 09/25/2016 Drug No Known Unknown [facility] Allergy/416 Allergies/K05194 [facility] 288183(SNOM 0388(RXNORM) Repository ED CT) Drug NO KNOWN [facility] Class/85363 ALLERGIES Main [place] 1003(SNOMED Repository CT) ENCOUNTERS ENCOUNTERS ADMIT/DISCHARGE ACCOUNT ADMITTING ENCOUNTER LOCATION SOURCE NUMBER CLASS 09/26/2018 [id number] [facility] ing:MTLAB Repository 07/12/2018 [id number] [facility] ing:MTLAB Repository 05/02/2018 [id number] [facility] ing:MTLAB Repository 03/14/2018 [id number] [facility] ing:MTLAB Repository 03/03/2018/03/03/20 [id number] [address] Main [place] Repository 03/01/2018 [id number] Ambulatory [facility] ing:MFPLAB Repository 02/23/2018 [id number] Ambulatory [facility] ing:MFPLAB Repository 01/18/2018 [id number] [facility] ing:MTLAB Repository PAYERS PAYERS ENCOUNTER GUARANTOR PAYER SUBSCRIBER SOURCE 09/26/2018 AMAIRANI Agosto [id number] Primary HEYDI D WIRTDOB: [place] [facility] [place] [id number] [facility] [address]Mxb: (330) MEDICAREPolicy Repository [phone] () Number: [id number] Date: [address] [address]CM: 09/26/2018 Secondary NOT GIVENUNK [place] Insurance:SELF PAY [facility] Number: Effective Repository Date:2018-09-26 07/12/2018 AMAIRANI Surendra [id number] Primary HEYDI D WIRTDOB: [place] [facility] Insurance[place] [id number] [facility] [address]Fib: (330) MEDICAREPolic Repository [phone] () Number: [id number] Date: [address] [address]VA: 07/12/2018 Secondary NOT GIVENUNK [place] Insurance:SELF PAY [facility] Number: Effective Repository Date:2018-07-12 05/02/2018 AMAIRANI Surendra [id number] Primary HEYDI D WIRTDOB: [place] Insurance[place] [id number] [facility] [address]Lcs: (330) MEDICAREPolicy Repository [phone] () Number: [id number] Date: [address] [address]JK: 05/02/2018 Secondary NOT GIVENUNK [place] Insurance:SELF PAY [facility]: Effective Repository Date:2018-05-02 03/14/2018 AMAIRANI Agosto [id number] Primary HEYDI D WIRTDOB: [place] Insurance[place] [id number] [place] [address]Tel: (330) MEDICAREPolicy Repository [phone] (HP) Number: [id number] Date: [address] [address]LR: 03/14/2018 Secondary NOT GIVENUNK [place] Insurance:SELF PAY [facility] Number: Effective Repository Date:2018-03-14 03/01/2018 AMAIRANI Agosto [id number] Primary HEYDI D WIRTDOB: [place] [id number] [place] [address]Tel: MEDICAREPolicy Repository [phone]~330- Number: 4 (HP) [id number] Date: [address] [address]LE: 03/01/2018 Secondary NOT GIVENUNK [place] Insurance:SELF PAY [facility] Number: Effective Repository Date:2018-03-01 02/23/2018 AMAIRANI Agosto [id number] Primary HEYDI D WIRTDOB: [place] Insurance[place] [id number] [place] [address]Tel: MEDICAREPolicy Repository [phone]~330- Number: 4 (HP) [id number] Date: [address] [address]PB: 02/23/2018 Secondary NOT GIVENUNK [place] Insurance:SELF PAY [facility] Number: Effective Repository Date:2018-02-23 01/18/2018 AMAIRANI Agosto [id number] Primary HEYDI D WENDYDOB: [place] Insurance[place] [id number] [facility] [address]Gfg: MEDICAREPolicy Repository [phone]~330- Number: 4 [place] [id number] Date: ARIANA [address] [address]OT: 01/18/2018 Secondary NOT GIVENUNK [place] Insurance:SELF PAY [facility] Number: Effective Repository Date:2018-01-18
== END ==
PROVIDERS: Family Provider Family Medicine; PCP Family Medicine; Referring Provider Internal Medicine Rheumatology; Visit Provider Internal Medicine Rheumatology
DX: M06.4 Inflammatory polyarthropathy (principal); Z79.899 Other long term (current) drug therapy; M79.7 Fibromyalgia; M35.00 Sjogren syndrome, unspecified; M18.0 Bilateral primary osteoarthritis of first carpometacarpal joints; M17.0 Bilateral primary osteoarthritis of knee; K21.9 Gastro-esophageal reflux disease without esophagitis; E78.5 Hyperlipidemia, unspecified
CPT/HCPCS: 36415; 80053; 85025

== ENCOUNTER → 2018-12-21 09:57 | Outpatient (CLI) | payer MEDICARE, SELFPAY ==
[2018-12-21 12:43] LABS: Absolute Lymphocyte Count 1.53 X10^3/ul (0.83-4.51); Absolute Neutrophil Count 3.2 X10^3/uL (2.0-7.7); Basophil# 0.03 X10^3/uL; Basophil% 0.6 % (0-1); Eosinophil# 0.06 X10^3/uL; Eosinophils% 1.2 % (0-5); Hemoglobin 12.7 g/dl (12.0-15.0); Lymphocyte # 1.53 X10^3/ul (4.0); Lymphocyte % 29.4 % (19-41); Mean Corp Hgb Conc 32.6 g/gl (32-36); Mean Corpuscular Hgb 33.4 pg (27.0-32.0); Mean Corpuscular Volume 102.6 fL (81-99); Mean Platelet Vol. 10.7 fl (6.2-12.0); Monocyte# 0.42 X10^3/uL; Monocyte% 8.1 % (0-10); Neutrophil # 3.17 X10^3/uL (2.7-7.7); Neutrophil % 60.7 % (47-70); Platelet Count 297 K/mm3 (150-450); RBC Distribution Width CV 13.5 % (11.6-14.6); RBC Distribution Width SD 49.3 fl (35.1-43.9); White Blood Count 5.2 K/mm3 (4.4-11.0)
[2018-12-21 12:45] LABS: POSITIVE COUNT NO; POSITIVE DIFFERENTIAL NO; POSITIVE MORPHOLOGY NO
[2018-12-21 13:01] LABS: ALB/GLOB Ratio 1.2 RATIO (0.9-2.4); AST(SGOT) 33 U/L (15-37); Alanine Aminotransfer ALT/SGPT 41 U/L (13-56); Albumin, Serum 3.9 g/dL (3.2-5.0); Alkaline Phosphatase 84 U/L (45-117); Anion Gap 9 (5-15); BUN 11 mg/dL (7-18); BUN/Creat Ratio 17.1 RATIO (10-20); Calcium,Total 9.3 mg/dL (8.5-10.1); Chloride 106 mmol/L (98-107); Creatinine, Serum 0.64 mg/dL (0.55-1.02); EST Glomerular Filtration Rate 96 mL/min (>60); Est Glom Filt Rate - Afr Amer 117 mL/min (>60); Globulin 3.2 g/dL (2.2-4.2); Glucose 95 mg/dL (74-106); Protein, Total 7.1 g/dL (6.4-8.2); Sodium Level 141 mmol/L (136-145)
== END ==
PROVIDERS: Family Provider Family Medicine; PCP Family Medicine; Referring Provider Internal Medicine Rheumatology; Visit Provider Internal Medicine Rheumatology
DX: M06.4 Inflammatory polyarthropathy (principal); M79.7 Fibromyalgia; M35.00 Sjogren syndrome, unspecified; M18.0 Bilateral primary osteoarthritis of first carpometacarpal joints; M17.0 Bilateral primary osteoarthritis of knee; K21.9 Gastro-esophageal reflux disease without esophagitis; E78.5 Hyperlipidemia, unspecified; Z79.899 Other long term (current) drug therapy
CPT/HCPCS: 36415; 80053; 85025

== ENCOUNTER → 2019-08-14 09:08 | Outpatient (CLI) | payer MEDICARE, SELFPAY ==
[2019-08-14 10:29] LABS: Anion Gap 6 (5-15); BUN 13 mg/dL (7-18); BUN/Creat Ratio 19.4 RATIO (10-20); Calcium,Total 9.2 mg/dL (8.5-10.1); Chloride 109 mmol/L (98-107); Cholesterol 251 mg/dL (200); Creatinine, Serum 0.67 mg/dL (0.55-1.02); EST Glomerular Filtration Rate 92 mL/min (>60); Est Glom Filt Rate - Afr Amer 111 mL/min (>60); Glucose 101 mg/dL (74-106); High Density Lipoprotein 54 mg/dL; Potassium 4.2 mmol/L (3.5-5.1); Sodium Level 141 mmol/L (136-145); Triglycerides 170 mg/dL; Very Low Density Lipoprotein 34 mg/dL (5-40)
== END ==
PROVIDERS: Family Provider Family Medicine; PCP Family Medicine; Referring Provider Family Medicine; Visit Provider Family Medicine
DX: Z00.00 Encounter for general adult medical examination without abnormal findings (principal); E55.9 Vitamin D deficiency, unspecified; E78.5 Hyperlipidemia, unspecified
CPT/HCPCS: 36415; 80048; 80061; 82306

== ENCOUNTER → 2020-07-12 08:39 | Outpatient (CLI) | payer OTHER, SELFPAY ==
[2020-07-12 10:36] LABS: Vitamin D,25 Hydroxy 49.7 ng/mL
[2020-07-12 10:57] LABS: ALB/GLOB Ratio 1.1 RATIO (0.9-2.4); AST(SGOT) 20 U/L (15-37); Alanine Aminotransfer ALT/SGPT 20 U/L (13-56); Albumin, Serum 3.7 g/dL (3.2-5.0); Alkaline Phosphatase 79 U/L (45-117); Anion Gap 6 (5-15); BUN 13 mg/dL (7-18); BUN/Creat Ratio 18.6 RATIO (10-20); Calcium,Total 9.2 mg/dL (8.5-10.1); Chloride 106 mmol/L (98-107); Cholesterol 178 mg/dL (200); EST Glomerular Filtration Rate 87 mL/min (>60); Est Glom Filt Rate - Afr Amer 106 mL/min (>60); Globulin 3.4 g/dL (2.2-4.2); Glucose 98 mg/dL (74-106); High Density Lipoprotein 56 mg/dL; Potassium 4.1 mmol/L (3.5-5.1); Protein, Total 7.1 g/dL (6.4-8.2); Sodium Level 139 mmol/L (136-145); Triglycerides 112 mg/dL; Very Low Density Lipoprotein 22 mg/dL (5-40)
== END ==
PROVIDERS: PCP Family Medicine; Referring Provider Family Medicine; Visit Provider Family Medicine
DX: E78.5 Hyperlipidemia, unspecified (principal); E55.9 Vitamin D deficiency, unspecified
CPT/HCPCS: 36415; 80053; 80061; 82306

== ENCOUNTER → 2020-07-18 | Outpatient (CLI) | payer OTHER, SELFPAY ==
--- NOTE | 2020-07-18 | LES_PTH ---
PATIENT: MARKIE NGUYEN [facility] U#:[id number] AGE/SX: 74/F ROOM: RE07/18/[address]: Dr. Nico Long MD : [id number] BED: DIS: 07/18/2020 SPEC #: [id number] RECD: 07/18/20 18:05 STATUS: HARLEY VIDAL #: [id number] ARNOLD: 07/18/20 00:[address]: Nico Long DEPT: SURGICAL PATHOLOGY RECD BY: John Medrano Tissues: Skin, NOS Procedures: Surgery Specimen Level III HEADER OPERATION: Punch biopsy PRE-OP DIAGNOSIS: Skin lesion 0.6 mm TISSUE SUBMITTED: Skin lesion MICROSCOPIC DIAGNOSIS Skin lesion, not further specified, biopsy: Epidermal inclusion cyst. AM:luis carlos 07/22/20 MICROSCOPIC DESCRIPTION Slides are reviewed. GROSS DESCRIPTION Received is one container labeled with the patient's name and not further designated. The specimen consists of a piece of mclain-brown skin measuring 0.7 x 0.5 x 0.3 cm. The specimen is inked, bisected and submitted entirely in one cassette. / SJ:rg 07/19/20 TC:5 [facility]: [id number]
== END | disposition home or self-care (01) ==
PROVIDERS: PCP Family Medicine; Referring Provider Family Medicine; Visit Provider Family Medicine
DX: L98.9 Disorder of the skin and subcutaneous tissue, unspecified (principal)
CPT/HCPCS: 88304; 88305

== ENCOUNTER → 2021-01-13 09:36 | Outpatient (CLI) | payer MEDICARE, SELFPAY ==
[2021-01-13 12:43] LABS: ALB/GLOB Ratio 1.1 RATIO (0.9-2.4); AST(SGOT) 23 U/L (15-37); Alanine Aminotransfer ALT/SGPT 29 U/L (13-56); Albumin, Serum 3.8 g/dL (3.2-5.0); Alkaline Phosphatase 83 U/L (45-117); Anion Gap 8 (5-15); BUN 13 mg/dL (7-18); Calcium,Total 9.6 mg/dL (8.5-10.1); Chloride 106 mmol/L (98-107); Cholesterol 184 mg/dL (200); Creatinine, Serum 0.68 mg/dL (0.55-1.02); EST Glomerular Filtration Rate 89 mL/min (>60); Est Glom Filt Rate - Afr Amer 108 mL/min (>60); Globulin 3.4 g/dL (2.2-4.2); Glucose 111 mg/dL (74-106); High Density Lipoprotein 59 mg/dL; Potassium 3.9 mmol/L (3.5-5.1); Protein, Total 7.2 g/dL (6.4-8.2); Sodium Level 140 mmol/L (136-145); Triglycerides 96 mg/dL; Very Low Density Lipoprotein 19 mg/dL (5-40)
== END ==
PROVIDERS: PCP Family Medicine; Visit Provider Family Medicine
DX: E78.5 Hyperlipidemia, unspecified (principal)
CPT/HCPCS: 36415; 80053; 80061

== ENCOUNTER → 2021-08-04 08:22 | Outpatient (CLI) | payer MEDICARE, SELFPAY ==
[2021-08-04 10:33] LABS: ALB/GLOB Ratio 0.9 RATIO (0.9-2.4); AST(SGOT) 15 U/L (15-37); Alanine Aminotransfer ALT/SGPT 16 U/L (13-56); Albumin, Serum 3.4 g/dL (3.2-5.0); Alkaline Phosphatase 78 U/L (45-117); Anion Gap 7 (5-15); BUN 8 mg/dL (7-18); BUN/Creat Ratio 12.1 RATIO (10-20); Calcium,Total 9.2 mg/dL (8.5-10.1); Chloride 108 mmol/L (98-107); Cholesterol 177 mg/dL (200); Creatinine, Serum 0.66 mg/dL (0.55-1.02); EST Glomerular Filtration Rate 93 mL/min (>60); Est Glom Filt Rate - Afr Amer 112 mL/min (>60); Globulin 3.6 g/dL (2.2-4.2); Glucose 102 mg/dL (74-106); High Density Lipoprotein 51 mg/dL; Potassium 3.9 mmol/L (3.5-5.1); Sodium Level 141 mmol/L (136-145); Thyroid Stim Hormone (TSH) 2.39 uIU/mL (0.358-3.74); Triglycerides 139 mg/dL; Very Low Density Lipoprotein 28 mg/dL (5-40)
== END ==
PROVIDERS: PCP Family Medicine; Referring Provider Family Medicine; Visit Provider Family Medicine
DX: E78.5 Hyperlipidemia, unspecified (principal); E87.5 Hyperkalemia; F32.A Depression, unspecified
CPT/HCPCS: 36415; 80053; 80061; 84443

== ENCOUNTER → 2021-10-16 10:06 | Outpatient (CLI) | payer MEDICARE, SELFPAY ==
[2021-10-16 11:43] LABS: Anion Gap 4 (5-15); BUN 11 mg/dL (7-18); BUN/Creat Ratio 16.5 RATIO (10-20); Calcium,Total 9.8 mg/dL (8.5-10.1); Chloride 109 mmol/L (98-107); Cholesterol 183 mg/dL (200); Creatinine, Serum 0.66 mg/dL (0.55-1.02); EST Glomerular Filtration Rate 92 mL/min (>60); Est Glom Filt Rate - Afr Amer 111 mL/min (>60); Glucose 103 mg/dL (74-106); High Density Lipoprotein 58 mg/dL; Potassium 4.3 mmol/L (3.5-5.1); Sodium Level 141 mmol/L (136-145); Triglycerides 129 mg/dL; Very Low Density Lipoprotein 26 mg/dL (5-40)
== END ==
PROVIDERS: PCP Family Medicine; Visit Provider Family Medicine
DX: Z00.00 Encounter for general adult medical examination without abnormal findings (principal)
CPT/HCPCS: 36415; 80048; 80061

== ENCOUNTER → 2022-03-13 | Outpatient (CLI) | payer MEDICARE, SELFPAY ==
[2022-03-13 12:20] LABS: Absolute Lymphocyte Count 1.86 X10^3/uL (0.83-4.51); Absolute Neutrophil Count 3.6 X10^3/uL (2.0-7.7); Basophil# 0.06 X10^3/uL; Eosinophil# 0.09 X10^3/uL; Eosinophils% 1.5 % (0-5); Hematocrit 38.6 % (37-47); Hemoglobin 12.5 g/dL (12.0-15.0); Lymphocyte # 1.86 X10^3/ul (0.83-4.51); Lymphocyte % 30.6 % (19-41); Mean Corp Hgb Conc 32.4 g/dL (32-36); Mean Corpuscular Hgb 31.6 pg (27.0-32.0); Mean Corpuscular Volume 97.5 fL (81-99); Mean Platelet Vol. 10.6 fl (6.2-12.0); Monocyte# 0.45 X10^3/uL; Monocyte% 7.4 % (0-10); NRBC Flagged by Analyzer 0 % (0-5); Neutrophil # 3.59 X10^3/uL (2.7-7.7); Neutrophil % 59.2 % (47-70); Platelet Count 286 K/mm3 (150-450); RBC Distribution Width CV 12.9 % (11.6-14.6); RBC Distribution Width SD 46.3 fl (35.1-43.9); Red Blood Count 3.96 M/mm3 (4.2-5.4); White Blood Count 6.1 K/mm3 (4.4-11.0)
[2022-03-13 12:45] LABS: Anion Gap 4 (5-15); BUN 13 mg/dL (7-18); BUN/Creat Ratio 18.9 RATIO (10-20); Calcium,Total 10.1 mg/dL (8.5-10.1); Chloride 108 mmol/L (98-107); Creatinine, Serum 0.69 mg/dL (0.55-1.02); EST Glomerular Filtration Rate 88 mL/min (>60); Est Glom Filt Rate - Afr Amer 107 mL/min (>60); Glucose 91 mg/dL (74-106); Potassium 4.1 mmol/L (3.5-5.1); Sodium Level 140 mmol/L (136-145)
== END | disposition home or self-care (01) ==
LOC: MFPLAB 10:15
PROVIDERS: PCP Family Medicine; Referring Provider Family Medicine; Visit Provider Family Medicine
DX: R55 Syncope and collapse (principal)
CPT/HCPCS: 36415; 80048; 85025

== ENCOUNTER → 2022-05-14 | Outpatient (CLI) | payer MEDICARE, SELFPAY ==
--- NOTE | 2022-05-14 14:23 | BI_ITS ---
MAMMOGRAPHY - BILATERAL SCREENING REASON FOR EXAM: Female, 76 years old. Routine annual screening examination. PERTINENT HISTORY: Mother with breast cancer. TECHNIQUE: Digital bilateral breast pipe (3D mammographic acquisition) in the CC and MLO projections. 2-D mediolateral oblique (MLO) and craniocaudad (CC) views of both breasts were obtained. CAD: Full Field Digital Mammography with Computer Added Detection was performed. COMPARISON: Comparison is made with prior outside examination 05/08/2021. FINDINGS: Breast Composition: There are scattered areas of fibroglandular density. There are no dominant masses or suspicious calcifications. No other significant abnormalities are identified. There has been no significant change since the prior study. BI/SCRN MAMM (CAD)W/PIPE BILAT IMPRESSION: Stable bilateral screening mammogram. Yearly follow-up mammogram recommended. (A) ASSESSMENT CATEGORY: BIRADS Category 1: Negative. A letter regarding these results will be sent to the patient by the facility within 30 days. Approximately 10% of breast cancers are not detected by mammography. A normal mammogram should not delay biopsy of a clinically suspicious abnormality. [id number] Electronically Signed: Jose C Martinez MD at 15:14 EDT ,
--- NOTE | 2022-05-14 14:29 | BD_ITS ---
STUDY: DUAL ENERGY X-RAY ABSORPTIOMETRY / DXA REASON FOR EXAM: Female, 76 years old. Z780 TECHNIQUE: Bone Mineral Density (BMD) measurements of lumbar spine and bilateral hips were obtained. COMPARISON: None. FINDINGS: Lumbar Spine (L1-L4): g/cm2 (0.765) / T-score (-2.6) / Z-score (-0.1) Findings are suggestive of osteoporosis with a high fracture risk. Left Femur Total: g/cm2 (0.658) / T-score (-2.3) / Z-score (-0.5) Left Femoral Neck: g/cm2 (0.499) / T-score (-3.1) / Z-score (-1.1) Right Femur Total: g/cm2 (0.683) / T-score (-2.1) / Z-score (-0.3) Right Femoral Neck: g/cm2 (0.510) / T-score (-3.1) / Z-score (-1.0) BD/Dexa Bone Density Study IMPRESSION: The patient is considered osteoporotic as outlined below according to World [employer] Organization (WHO) criteria with a high fracture risk. Reference Information: The T-score is the number of standard deviations above or below the standard which is normal for young adults at their peak bone mineral density. The World Health Organization (WHO) interprets the T-scores as follows: Above -1 Normal bone density Between -1 and -2.5 Osteopenia Equal to / or below -2.5 Osteoporosis As a practical clinical guideline, osteopenia may be graded as follows: Mild -1 through -1.5 Moderate -1.6 through -2.0 Severe -2.1 through -2.4 The Z-score is the number of standard deviations above or below age-matched controls. A Z-score of less than -1.5 would be considered abnormal. References: 1. NIH Osteoporosis and Related Bone Diseases www osteo.org 2. International Society for Clinical Densitometry www iscd.org 3. National Osteoporosis Foundation www nof.org Electronically Signed: Jose C Martinez MD at 15:33 EDT ,
== END | disposition home or self-care (01) ==
LOC: OPBD 14:22
PROVIDERS: PCP Family Medicine; Visit Provider Family Medicine
DX: Z00.00 Encounter for general adult medical examination without abnormal findings (principal); Z78.0 Asymptomatic menopausal state; Z12.31 Encounter for screening mammogram for malignant neoplasm of breast
CPT/HCPCS: 77063; 77067; 77080

== ENCOUNTER → 2022-10-30 | Outpatient (CLI) | payer MEDICARE, SELFPAY ==
[2022-10-30 12:34] LABS: Anion Gap 6 (5-15); BUN 10 mg/dL (7-18); BUN/Creat Ratio 15.1 RATIO (10-20); Calcium,Total 9.9 mg/dL (8.5-10.1); Chloride 107 mmol/L (98-107); Cholesterol 204 mg/dL (200); Creatinine, Serum 0.66 mg/dL (0.55-1.02); EST Glomerular Filtration Rate 92 mL/min (>60); Est Glom Filt Rate - Afr Amer 111 mL/min (>60); Glucose 90 mg/dL (74-106); High Density Lipoprotein 62 mg/dL; Potassium 4.3 mmol/L (3.5-5.1); Sodium Level 142 mmol/L (136-145); Triglycerides 118 mg/dL; Very Low Density Lipoprotein 24 mg/dL (5-40)
[2022-10-30 12:42] LABS: Vitamin D,25 Hydroxy 80.7 ng/mL
== END | disposition home or self-care (01) ==
LOC: MFPLAB 09:28
PROVIDERS: PCP Family Medicine; Visit Provider Family Medicine
DX: Z00.00 Encounter for general adult medical examination without abnormal findings (principal); M81.0 Age-related osteoporosis without current pathological fracture; E78.00 Pure hypercholesterolemia, unspecified
CPT/HCPCS: 36415; 80048; 80061; 82306

== ENCOUNTER → 2023-04-16 | Outpatient (CLI) | payer MEDICARE, SELFPAY ==
--- NOTE | 2023-04-16 15:32 | RAD_ITS ---
ACR Level 3 findings have been noted. An addendum which confirms receipt of the report will follow. HISTORY: pain. TECHNIQUE: XR Hip Unilateral with Pelvis when performed; 2-3 Views. COMPARISON: 05/02/2018. FINDINGS: OSSEOUS STRUCTURES: Mild angulation and impaction of the right subcapital femoral neck. Note that overlapping bowel shadows may obscure osseous detail. Mild osteopenia. JOINT SPACES: No dislocation. Mild degenerative changes of the hips. SOFT TISSUES: Calcified pelvic lesion again seen. New calcified pelvic lesion more superiorly. Suture in the region of the rectum again noted. RAD/HIP, UNI W/ Pelvis 2-3 Views IMPRESSION: Impacted fracture of the subcapital right femoral neck. Calcified uterine leiomyomata. Electronically Signed: Maty Oliva MD at 13:51 EDT ,
== END | disposition home or self-care (01) ==
LOC: MTRAD 15:27
PROVIDERS: PCP Family Medicine; Referring Provider Family Medicine; Visit Provider Family Medicine
DX: M25.551 Pain in right hip (principal)
CPT/HCPCS: 73502

== ENCOUNTER 2023-04-28 06:51 | Observation (INO) | payer MEDICARE, SELFPAY ==
--- NOTE | 2023-04-26 08:29 | EKG12_ITS ---
Test Reason : PRE-OP Blood Pressure : / mmHG Vent. Rate : 077 BPM Atrial Rate : 077 BPM P-R Int : 150 ms QRS Dur : 084 ms QT Int : 370 ms P-R-T Axes : 049 055 036 degrees QTc Int : 418 ms Normal sinus rhythm Normal ECG Confirmed by OPAL DALY, MAXIMILIANO ([id number]), editor news MARIA M LINO ([id number]) on 04/26/2023 12:34:15 PM Referred By: Omi Lyon Confirmed By:MAXIMILIANO JOSEPH MD
[2023-04-26 10:02] LABS: Absolute Lymphocyte Count 1.64 X10^3/uL (0.83-4.51); Absolute Neutrophil Count 3.1 X10^3/uL (2.0-7.7); Basophil# 0.04 X10^3/uL; Basophil% 0.8 % (0-1); Eosinophil# 0.06 X10^3/uL; Eosinophils% 1.1 % (0-5); Hematocrit 38.6 % (37-47); Hemoglobin 12.7 g/dL (12.0-15.0); Lymphocyte # 1.64 X10^3/ul (0.83-4.51); Lymphocyte % 30.9 % (19-41); Mean Corp Hgb Conc 32.9 g/dL (32-36); Mean Corpuscular Hgb 32.1 pg (27.0-32.0); Mean Corpuscular Volume 97.5 fL (81-99); Monocyte# 0.42 X10^3/uL; Monocyte% 7.9 % (0-10); NRBC Flagged by Analyzer 0 % (0-5); Neutrophil # 3.14 X10^3/uL (2.7-7.7); Neutrophil % 59.1 % (47-70); Platelet Count 331 K/mm3 (150-450); RBC Distribution Width CV 12.8 % (11.6-14.6); RBC Distribution Width SD 46.2 fl (35.1-43.9); Red Blood Count 3.96 M/mm3 (4.2-5.4); White Blood Count 5.3 K/mm3 (4.4-11.0)
[2023-04-26 10:29] LABS: Magnesium 2.2 mg/dL (1.6-2.6)
[2023-04-26 10:48] LABS: Albumin, Serum 3.6 g/dL (3.2-5.0); Anion Gap 4 (5-15); BUN 19 mg/dL (7-18); BUN/Creat Ratio 29.4 RATIO (10-20); Calcium,Total 9.8 mg/dL (8.5-10.1); Chloride 107 mmol/L (98-107); Creatinine, Serum 0.65 mg/dL (0.55-1.02); EST Glomerular Filtration Rate 95 mL/min (>60); Est Glom Filt Rate - Afr Amer 115 mL/min (>60); Glucose 94 mg/dL (74-106); Potassium 3.9 mmol/L (3.5-5.1); Sodium Level 138 mmol/L (136-145)
[2023-04-26 11:30] LABS: Hemoglobin A1c 5.7 % (3.8-5.6)
[2023-04-28] VITALS (16 sets, daily range): BP systolic 93–157; BP diastolic 36–81; PULSE 72–767; RESP 16–18; TEMP 36.6–37.1; O2SAT 93–100; BMI 25.0
[2023-04-28] MEDS: Magnesium 1 GM over 15 mins IV (06:23)
[2023-04-28] MEDS: Lactated Ringers 1,000 ML 15 ML IV ×2 (06:25→08:31)
--- NOTE | 2023-04-28 06:30 | RAD_ITS ---
STUDY: X-RAY - PELVIS AND RIGHT HIP REASON FOR EXAM: Female, 77 years old. PAIN TECHNIQUE: 1 views of the pelvis and hip. COMPARISON: None. FINDINGS: Fluoroscopy the right hip utilizing operating room during hip arthroplasty and 4 images are somewhat limited for interpretation. . RAD/Hip 1 view with Pelvis IMPRESSION: Fluoroscopy during right hip arthroplasty. Electronically Signed: Vladimir Bird MD at 8:19 EDT ,
--- NOTE | 2023-04-28 06:56 | OP.PCM_ITS ---
Report of Operation Date of Procedure: 04/28/23 Pre-Operative Diagnosis: Right hip primary osteoarthritis Right hip subcapital femoral neck fracture Post-Operative Diagnosis: Right hip primary osteoarthritis Right hip subcapital femoral neck fracture Surgery/Procedure Performed:: Right direct anterior total hip replacement Description of Surgical Findings:: Stable hip with equal leg length Surgeon: Omi Lyon upholsterer apprentice: Florentino Blanco Type of Anesthesia: Spinal Anesthesiologist: Tay Reeves Special Medications: 2 g Ancef, 1 g TXA at incision, 1 g TXA closure, 10 mg Decadron, joint cocktail (5 mg Duramorph, 30 mL of 0.5% Ropivicaine, 1000 units of epinephrine, 30 mg of Toradol) Specimen's removed: Bony cuts Estimated Blood Loss (mL): 150 Fluids Replaced: 1200 Description of Procedure: Components used: 1. Insignia [place] femoral stem size 3 standard 2. Donovan trident 2 acetabular shell size 48 mm 3. Donovan X3 polyethylene D 4. Donovan Biolox delta 36 mm, -5 mm femoral head Brief history operative indications: 77-year-old female who presented to our office 1 week after a fall. Patient was ambulating with a walker but did have a impacted femoral neck fracture. She had continued pain as well as x-ray evidence of joint space narrowing subchondral sclerosis and osteophyte formation consistent with moderate to severe osteoarthritis. Close reduction percutaneous pinning, nonoperative treatment, hemiarthroplasty and total hip replacement was discussed with the patient with risks and benefits including but not limited to blood loss, DVTs, PEs, neurovascular damage, dislocation, general risks of anesthesia including loss of life. Patient demonstrated an understanding medical clearance is obtained the patient was consented for surgery. Ultimately patient wished to proceed with total hip replacement based on our recommendations in relation to the patient's activity level, concurrent osteoarthritis and available treatment options. Procedure: On the date of procedure the patient's right hip was marked in the preoperative area. Patient was then taken back to the operating room where anesthesia assumed control of the C-spine and airway and administered anesthetic. Patient was transferred to the operating table and placed in the supine position. The hips were placed at the break of the bed and a sacral bump was placed. The right lower extremity was then prepped out in a sterile fashion using chlorhexidine while the surgeon scrubbed. The PA was vital in the positioning of the patient. Upon reentering the room the right lower extremity was draped in the standard orthopedic fashion and the incision was marked. A timeout was called and everyone agreed upon the side, the site, the procedure be performed, antibody given, and patient's identity. At this time incision was made through skin, subcutaneous tissue, and fat down to fascia. The fascia was then incised and the TFL was retracted laterally. A retractor was placed on the lateral border of the femoral neck. Attention was directed to the inferior portion of the approach and all crossing vessels were identified and appropriately coagulated. A retractor was then placed on the medial portion of the femoral neck. The anterior capsule was then cleared of all soft tissue and then H shaped capsulotomy was made. The retractors were then placed inside the capsule. The femoral neck was identified and a cleanup cut was made. At this time a power corkscrew was used to remove the femoral head. Attention was then turned toward the acetabulum where the soft tissues were appropriately retracted and the acetabulum was sequentially reamed to 48 mm. A 48 mm cup was then selected and impacted into place. 1 screw was placed in the safe zone acetabular liner was impacted into place and locking mechanism was verified. The position of the acetabular cup was then verified under live fluoroscopy. Attention was then turned to the femur. Soft tissue releases on the medial and lateral femoral neck were appropriately done, the leg was externally rotated and lateralized. A Butts retractor was placed medially and proximally to the greater trochanter this allowed appropriate visualization and exposure of the femoral canal. Rongeour was then used to remove excess lateral bone. A canal finder and entry broach were used to open the proximal canal. Once we verified we were down the femoral canal we subsequently broached up to a size 3 femur. The appropriate neck was placed in the previously selected head was trialed with a -5 mm neck. Traction was pulled and the hip was reduced with internal rotation. Once it was appropriately reduced and stability was checked. There was minimal shuck, equal leg lengths and appropriate stability with hyperextension and external rotation as well as with 90? flexion and internal rotation. Fluoroscopy was then also used to verify the position of the components and leg lengths using the contralateral side for comparison. The trial components were then dislocated the proximal femur was again exposed and the components were removed from the wound. The final components were verified and opened. The wound was copiously irrigated out with normal saline. The acetabulum was checked for any residual debris. The final components were placed and impacted. Traction and internal rotation were again used to reduce the hip. After adequate reduction the hip remained stable with appropriate leg lengths. The final components were once again checked with live fluoroscopy and were found to be satisfactory. The wound was then copiously irrigated with normal saline once more, and hemostasis was obtained. Closure was then done using #1 Vicryl runner to close the fascia. A 2-0 vicryl interuppted sutures were used to close the subcutaneous skin. A 3-0 Monocryl and Steri-Strips were used for final skin closure. A Silverlon dressing was placed. Patient was awakened by anesthesia and transferred to the [place]. Patient was then transferred to the PACU for recovery. During the course of the procedure the physician engineering and operations director (PE) played a vital role. Their intimate knowledge of my steps in the procedure aided in safe and expedient completion of the procedure. The PE played a vital rolls in positioning particularly in obtaining the appropriate positioning of the sacral bump. The PE was also vital in the retraction of soft tissues during the exposure and especially the femoral work as this is a vital part of the procedure to prevent complications and fractures. The PE was also vital and protecting soft tissues during times of bony cuts and reaming. He also played a vital role in closure with my direct supervision. The PE was also important during reduction and dislocation of the joint and trials intraoperatively. Postoperative plan: Patient will get 24 hours postop antibiotics. Patient will get in-house physical therapy and will be weight-bear as tolerated. Patient will follow up in office in 2 weeks for a wound check and x-rays. Aspirin 81 mg twice daily. Complications No intraoperative complications Admit VTE Documentation VTE Present on Admission: No VTE Mechan Device Prophylaxis: SCD's and Thigh High DIMA Hose VTE Pharm Prophylaxis ordered?: Yes
[2023-04-28 07:02] LABS: Bedside Glucose 211 mg/dL (74-106)
[2023-04-28] MEDS: Cefazolin 2 GM in 0.9% Normal Saline 100 ML IV (07:22)
--- NOTE | 2023-04-28 07:30 | HIP_PTH ---
PATIENT: MARKIE NGUYEN LOC: MS3 U#:[id number] AGE/SX: 77/F [place] [facility] [place]: Dr. Omi Lyon MD : 1945 BED: 1 DIS: 04/29/2023 SPEC #: [id number] RECD: 04/28/23 10:38 STATUS: HARLEY DRAKE #: [id number] ARNOLD: 04/28/23 07:[address]: Omi Lyon DEPT: SURGICAL PATHOLOGY RECD BY: Elisa Westfall ENTERED: 04/28/23 13:05 SP TYPE: TOTAL HIP OTHR DR: MD Dr. Holly Medina MD Tissues: Hip, NOS Procedures: Decalcification bone/plaque Surgery Specimen Level IV HEADER OPERATION: ERAS, total hip anterior approach PRE-OP DIAGNOSIS: Nondisplaced fracture of bone of neck of right femur, osteoarthritis right hip TISSUE SUBMITTED: Bone and soft tissue of right hip MICROSCOPIC DIAGNOSIS Right hip bone and tissue, total hip replacement/resection: Femoral head with focal area of callus formation, clinically fracture of neck of right femur. Focal mild degenerative osteoarthritic changes. Fragments of fibroadipose tissue, fibroconnective tissue, skeletal muscle tissue and reactive synovial tissue. SANYA:luis carlos 04/30/2023 MICROSCOPIC DESCRIPTION Slides are reviewed. GROSS DESCRIPTION Received is one container labeled with the patient's name and designated bone and tissue right hip. The specimen consists of a mclain femoral head with portion of femoral neck. The femoral head measures 4.5 x 4.5 x 3.5 cm and the femoral neck measures up to 2.0 cm in length. A focal area of irregularity is noted close to the junction of femoral head and neck. The articular surface displays prominent osteophyte formation and bone erosion. Also present in the specimen container are multiple irregular fragments of bone reamings and pink-yellow soft tissue measuring in aggregate 8.0 x 8.0 x 2.0 cm. Ux Ui Designer sections are submitted in four cassettes as follows: 1 - soft tissue, 2 - bone reamings, 3 & 4 - femoral head after decalcification. / SANYA:luis carlos 04/28/2023 TC:5 CPT: 93211, 58125
[2023-04-28] MEDS: TXA 1000mg in NS100 100ml (IVPB at Incision) 660 MG IV (07:33)
[2023-04-28] MEDS: dexAMETHasone 10 MG/ML Vial IV (07:35)
[2023-04-28 07:56] LABS: Bedside Glucose 136 mg/dL (74-106)
[2023-04-28] MEDS: TXA 1000mg in NS100 100ml (IVPB at Closure) 660 MG IV (08:29)
[2023-04-28] MEDS: JPS (Morphine 10mg/ml) OPERA.SITE (08:30)
[2023-04-28] MEDS: Lactated Ringers 1,000 ML 125 ML IV (09:00)
--- NOTE | 2023-04-28 09:10 | RAD_ITS ---
STUDY: X-RAY - PELVIS AND RIGHT HIP REASON FOR EXAM: Female, 77 years old. Right total hip replacement. TECHNIQUE: 2 views of the pelvis and hip. COMPARISON: Comparison is made with prior examination dated April 16, 2023. FINDINGS: There is a non-specific bowel gas pattern. Calcified fibroid uterus. The patient is status post right total hip replacement. There is good alignment. Postoperative soft tissue changes. RAD/Hip Min 2 Views (Portable) IMPRESSION: Status post right total hip replacement. There is good alignment. Postoperative soft tissue changes. Electronically Signed: Jose C Martinez MD at 13:19 EDT ,
[2023-04-28] MEDS: Lactated Ringers 1,000 ML 999 ML IV (09:30)
--- NOTE | 2023-04-28 12:01 | PN.HOSP_ITS ---
Reason for Visit Reason for Visit: Diagnoses Encounter for other preprocedural examination (04/28/23) Subjective Subjective Patient is a 77-year-old female with right hip osteoarthritis and a right hip some capital femoral neck fracture who presented to [facility] 04/28/2023 for a right direct anterior total hip replacement. Hospitalist consulted for postop medical management. Patient status surgery and is doing well, has some discomfort but has no other complaints. Has not urinated yet and will let us know when she does. Had his head rolled down slightly previously and created a ring on her upper thighs however they have been adjusted and are more comfortable and she indicated she would let us know if there are any other problems. No chest pain or shortness of breath. Did not voice any other complaints Objective Data Objective Data Vital Signs: Vital Signs Temp Pulse Resp BP Pulse Ox O2 Del Method O2 Flow Rate 98.7 F 82 18 133/52 H 98 Room Air 4 04/28/23 11:21 04/28/23 11:21 04/28/23 11:21 04/28/23 11:21 04/28/23 11:21 04/28/23 11:21 04/28/23 10:42 Oxygen Flow Rate (L/min) 4 Oxygen Delivery Method Room Air Weight: 58 kg Body Mass Index (BMI) 25.0 Intake & Output: Intake and Output for Last 24 Hours 04/26/23 04/27/23 04/28/23 23:59 23:59 23:59 Intake Total 3432 / 3432 Balance 3432 / 3432 Lab / Micro Data 04/26/23 08:46 04/26/23 08:46 Labs: Laboratory Results - last 24 hr 04/28/23 05:53: POC Glucose 211 H 04/28/23 06:29: POC Glucose 136 H Micro: Microbiology 04/26/23 08:46 Swab (Method) Nasal Screen MRSA/MSSA - Final Physical Exam Narrative General: Alert, oriented, no apparent distress HEENT: Atraumatic, normocephalic Eyes: Anicteric, normal conjunctiva, extraocular movements grossly intact Neck: Supple Respiratory: Clear to auscultation bilaterally, normal respiratory effort Cardiovascular: Regular rate and rhythm GI: Soft, nontender, nondistended Extremities: No edema Musculoskeletal: Moving all extremities Neuro: No overt focal neurological deficits Skin: No rashes appreciated Psych: Cooperative Assessment & Plan Assessment/Plan (1) S/P total right hip arthroplasty: PLAN: Plan #Right hip osteoarthritis and a right hip some capital femoral neck fracture -s/p right direct anterior total hip replacement 04/28 w/ Dr. Lyon -Pt to have abx for 24hr post op -PT c/s -Weightbearing as tolerated Will need to follow-up with Dr. Lyon in the office with 2 weeks for wound check and x-rays -Pain control #DVT ppx: Will be placed on aspirin 81 mg twice daily, timing deferred to primary, SCDs and DIMA Gong MD Time spent in the patient's overall evaluation,decision-making process, review of diagnostic data, adjustment of management, discussion with other providers, nursing nursing and ancillary staff involved in patient's care documentation, 30 Minutes Charges/Coding Visit Charges Inpatient E&M: 80018 Subs Hosp L2
[2023-04-28] MEDS: Acetaminophen 500 MG Tablet 1000 MG PO ×2 (13:39→22:34)
[2023-04-28] MEDS: Cefazolin 1 GM/50 ML BAG IV ×2 (15:45→22:46)
[2023-04-28] MEDS: Aspirin 81 MG TAB.CHEW PO (15:47)
[2023-04-28] MEDS: Atorvastatin Calcium 10 MG Tablet PO (22:34)
[2023-04-28] MEDS: Sertraline 100 MG Tablet PO (22:34)
[2023-04-28] MEDS: Senna/Docusate Sodium 1 Tablet 2 TABLET PO (22:34)
[2023-04-28] MEDS: Ketorolac 15 MG/ML Vial IV (22:44)
[2023-04-29 00:58] VITALS: BP 143/63; PULSE 84; RESP 16; TEMP 36.8; O2SAT 93
[2023-04-29] MEDS: Acetaminophen 500 MG Tablet 1000 MG PO ×2 (06:11→13:38)
[2023-04-29 06:14] VITALS: BP 140/71; PULSE 87; RESP 16; TEMP 36.6; O2SAT 92
[2023-04-29 06:15] LABS: Hematocrit 30.9 % (37-47); Hemoglobin 9.7 g/dL (12.0-15.0); Mean Corp Hgb Conc 31.4 g/dL (32-36); Mean Corpuscular Hgb 31.1 pg (27.0-32.0); Platelet Count 242 K/mm3 (150-450); RBC Distribution Width SD 46.7 fl (35.1-43.9); Red Blood Count 3.12 M/mm3 (4.2-5.4); White Blood Count 10.6 K/mm3 (4.4-11.0)
[2023-04-29] MEDS: Ondansetron 4 MG/2 ML Vial IV (06:32)
[2023-04-29] MEDS: traMADol 50 MG Tablet PO ×2 (06:32→13:37)
[2023-04-29 06:42] LABS: Anion Gap 3 (5-15); BUN 12 mg/dL (7-18); BUN/Creat Ratio 20.4 RATIO (10-20); Chloride 111 mmol/L (98-107); Creatinine, Serum 0.59 mg/dL (0.55-1.02); EST Glomerular Filtration Rate 106 mL/min (>60); Est Glom Filt Rate - Afr Amer 128 mL/min (>60); Estimated Creatinine Clearance 34.38 ml/min; Glucose 123 mg/dL (74-106); Potassium 3.9 mmol/L (3.5-5.1); Sodium Level 140 mmol/L (136-145)
[2023-04-29 07:54] VITALS: BP 124/56; PULSE 84; RESP 16; TEMP 36.6; O2SAT 95
[2023-04-29] MEDS: Aspirin 81 MG TAB.CHEW PO (08:02)
[2023-04-29] MEDS: Senna/Docusate Sodium 1 Tablet 2 TABLET PO (10:37)
[2023-04-29] MEDS: Cholecalciferol (VIT D3) 25 MCG TABLET (1,000 UNITS) PO (10:37)
[2023-04-29] MEDS: Famotidine 20 MG Tablet PO (10:38)
--- NOTE | 2023-04-29 10:39 | PCM.PN.ORT ---
Subjective Subjective The patient was sitting in bed side chair upon examination. Patient denies any chest pain, shortness of breath, dizziness, lightheadedness, nausea or vomiting, or calf pain. Pain is controlled on medications. No adverse overnight events. Patient did well with physical therapy today. She has help at home and plans on going home on discharge. She does not have outpatient physical therapy established. Objective Data Objective Data Vital Signs: Vital Signs Temp Pulse Resp BP Pulse Ox O2 Del Method O2 Flow Rate 97.8 F 84 16 124/56 H 95 Room Air 4 04/29/23 07:54 04/29/23 07:54 04/29/23 07:54 04/29/23 07:54 04/29/23 07:54 04/29/23 07:54 04/28/23 10:42 Oxygen Flow Rate (L/min) 4 Oxygen Delivery Method Room Air Weight: 58 kg Body Mass Index (BMI) 25.0 Intake & Output: Intake and Output for Last 24 Hours 04/27/23 04/28/23 04/29/23 23:59 23:59 23:59 Intake Total 4375.75 / 4675.75 774.75 / 774.75 Balance 4375.75 / 4675.75 774.75 / 774.75 Lab / Micro Data 04/29/23 05:53 04/29/23 05:53 Labs: Laboratory Results - last 24 hr 04/29/23 05:53: WBC 10.6, RBC 3.12 L, Hgb 9.7 L, Hct 30.9 L, MCV 99.0, MCH 31.1, MCHC 31.4 L, RDW Std Deviation 46.7 H, RDW Coeff of Winnie 13.0, Plt Count 242, MPV 10.0, Sodium 140, Potassium 3.9, Chloride 111 H, Carbon Dioxide 26.0, Anion Gap 3 L, BUN 12, Creatinine 0.59, Estim Creat Clear Calc 34.38, Est GFR (MDRD) Af Amer 128, Est GFR (MDRD) Non-Af 106, BUN/Creatinine Ratio 20.4 H, Glucose 123 H, Calcium 9.0 Micro: Microbiology 04/26/23 08:46 Swab (Method) Nasal Screen MRSA/MSSA - Final Radiography Diagnostic Testing: Radiology Impression Hip/Pelvis X-Ray 04/28/23 06:30 IMPRESSION: Fluoroscopy during right hip arthroplasty. Electronically Signed: Vladimir Bird MD at 8:19 EDT , Hip X-Ray 04/28/23 09:10 IMPRESSION: Status post right total hip replacement. There is good alignment. Postoperative soft tissue changes. Electronically Signed: Jose C Martinez MD at 13:19 EDT , Physical Exam Narrative Vital signs stable and afebrile. Right hip is soft and supple Patient is able to plantarflex and dorsiflex actively. Sensation is intact to light touch to saphenous, sural, superficial and deep peroneal, and tibial distribution. Dressing is clean dry and intact. Negative Homans bilaterally, negative signs and symptoms of DVT. Const alert, oriented x3 and no apparent distress Assessment & Plan Assessment/Plan (1) S/P total right hip arthroplasty: PLAN: 1. S/P right total hip arthroplasty direct anterior approach POD #1 2. Continue Pain Medications: Tylenol and tramadol 3. DVT Prophylaxis: Take 81 mg aspirin twice daily for 4 weeks postoperatively for DVT prophylaxis. Patient denies past history of DVT or pulmonary embolism. 4. PT/OT: Weightbearing as tolerated with walker. Patient did well with therapy today and plan is discharged home with outpatient physical therapy 5. H & H: 9.7/30.9, asymptomatic. Postoperative anemia secondary to acute blood loss from surgery without any intra operative complications. There was estimated blood loss 150 mL. Patient clinically stable with vitals within normal limits. She denies any dizziness or lightheadedness. She does report having past history of anemia. She will be placed on ferrous sulfate and folic acid. She will take this for 2 weeks postoperatively. We will schedule her follow-up with her primary care physician with outpatient CBC. 6. Continue medical management per medicine 7. Encouraged Incentive Spirometry 8. Disposition: Patient is orthopedically stable and overall doing well. Patient has tolerated physical therapy very well and recommended outpatient therapy. Case management currently on board setting up outpatient physical therapy. We will also schedule her for 2-week follow-up with her primary care physician with repeat lab work for her postoperative anemia. She would like her prescriptions E scribed to [facility] in [facility]. She will follow-up per postop instructions. We discussed postoperative restrictions with direct anterior total approach. She has not to do combined abduction and extension such as movement getting out of bed. She voiced understanding. I have reviewed the [place] Automated Rx Reporting System (OARRS) report for this patient for refill pattern and other prescriber involvement as part of the appropriate surveillance for the provision of acute and chronic controlled medications. The report was requested and reviewed on the date of this entry and was considered in the prescribing process. This dictation was created using voice recognition software. Phonetic and/or grammatical errors may exist.
--- NOTE | 2023-04-29 10:43 | DCINST_ITS ---
Discharge Instructions Diet Discharge Diet: No restrictions Activity Discharge Activity: May Not Drive (No driving for 6 weeks postoperatively and must be off all narcotics) May shower in (days): 1 (only if incision is dry and without drainage. Do NOT soak/submerge in tub/pool/walsh/stream/hot tub.)) Ice area for (Minutes): 20 (Every 1-2 hours while awake[address] place barrier between ice and skin.) Weight Bearing Status: Weight bearing as tolerated Keep extremity elevated above heart level: Operative Extremity Additional Activity Instructions:: Follow [facility] Post-op Instructions. Once postoperative dressing has been removed only use gentle soap and water over the incision. Do not use any ointments, Neosporin, salves, alcohol pads over the incision for 6 weeks postoperatively. Do not submerge underwater for 6 weeks postoperatively. Wear elastic stockings for 2 weeks. Do NOT use alcohol with narcotic pain medication. Do NOT make important decisions while taking narcotic medication. If you have problems with taking your medication (rash, itching, nausea, etc.) call the office at once. Dressing / Incision Call your doctor if your incision/area has: Continuous Slow Oozing, Sudden Increased Bleeding, Increased Pain/ Swelling, Increased Redness and Foul Smelling Discharge Call your doctor if you observe: Fever of 101 or Higher, Shortness of breath, Chest pain, Calf discomfort and Uncontrolled pain Remove Dressing in: 4 days (Okay to remove dressing on May 03, 2023) Additional Dressing/Incision Instructions:: Follow [facility] Post-op Instructions. Once postoperative dressing has been removed, only use gentle soap and water over the incision. Do not use any ointments, Neosporin, salves, alcohol pads over the incision for 6 weeks postoperatively. Do not submerge underwater for 6 weeks postoperatively. Continue with DIMA hose/elastic stockings for 2 weeks postoperatively. May remove at nighttime but needs to be placed back on the leg during the day. Do NOT use alcohol with narcotic pain medication. Do NOT make important decisions while taking narcotic medication. If you have problems with taking your medication (rash, itching, nausea, etc.) call the office at once. Follow Up Care Test Results: Test results from this visit will be discussed in further detail at your follow- up appointment, if applicable. Discharge Plan Admission Admit Date/Time: 04/28/23 06:51 Attending Provider: Omi Lyon Primary Care Provider: Nico Long Consulting Providers: Holly Gong Discharge Orders/Prescriptions Prescriptions: New aspirin 81 mg Tablet,Chewable 81 mg PO BIDCM 30 Days Qty: 60 0RF Rx Instructions: Take 81 mg aspirin twice daily for 4 weeks postoperatively for DVT prophylaxis. sennosides-docusate sodium [Stool Softener-Stimulant Laxat] 8.6-50 mg Tablet 2 tab PO BID 3 Days Qty: 12 0RF Rx Instructions: Take until first bowel movement, then as needed tramadol 50 mg Tablet 50 - 100 mg PO Q6H PRN PRN (Reason: As needed for pain) 5 Days Qty: 42 0RF ferrous sulfate [FeroSul] 325 mg (65 mg iron) Tablet 325 mg PO 1200,1700 14 Days Qty: 28 0RF folic acid 1 mg Tablet 1 mg PO BREAKFAST 14 Days Qty: 14 0RF Continued atorvastatin 10 MG tablet 10 mg PO QHS sertraline 100 MG tablet 100 mg PO DAILY cholecalciferol (vitamin D3) [Vitamin D3] 1,000 UNIT tablet 1,000 unit PO DAILY omeprazole 20 MG capsule 20 mg PO PRN PRN (Reason: Heartburn) acetaminophen [Acetaminophen Extra Strength] 500 mg tablet 1,000 mg PO Q6H PRN (Reason: pain) Discontinued tramadol 50 mg PO PRN Referrals / Follow Up: Nico Long MD [Primary Care Provider] - Florentino Blanco PA-C [Med Staff - [facility]] - 05/13/23 1:45 pm Disposition Disposition (needs filled in before D/C Order can be placed): Home, Self Care
--- NOTE | 2023-04-29 11:00 | CASEMGMT ---
Addendum entered by Myranda Disla 04/29/23 11:26: MIKE SERRANO into pt room, pt is aware of the appts made and that they are also on her dc instructions. Addendum entered by Myranda Disla 04/29/23 11:21: TC to 's office, appt made for 05/13/23 at 2:20pm. TC to [facility], appt made for 05/05/23 at 2:30pm. Placed on dc instructions. Original Note: MIKE SERRANO Assessment: Face to Face with pt for initial transition planning/care coordination assessment. MIKE SERRANO introduced self and role at [facility], pt voices understanding and consents to assessment. Pt is A/O x4 and answers all questions appropriately at this time. Pt sitting up in chair with at bedside in no distress. Care providers, pharmacy, and demographics verified/updated. Admitting Dx: R total hip PCP:Mercedes Specialists:guillermo Lyon; guillermo Alexis [facility]erred [facility]acy: [facility] Insurance: [facility] Prescription Benefit: yes LNOK: Carmen [place], ; Martha Charles, dtr Living Arrangements: Pt lives with in a single story home with 3 platform steps to enter, pt can use walker on steps. Pt reports she is I in ADL's and denies concerns at home. Transportation: Pt drives self and denies concerns with transportation. Pt to transport pt to medical appts post surgery. Pt is aware that an appt is requested for in 2 wks for low hgb. Pt prefers afternoons. DME/HHC/SNF: Pt has handles over the toilet, shower chair, FWW and grab bars in the tub. Pt denies hx of HHC and SNF stays. Pt states no concerns with going home at time of dc. PA asked MIKE SERRANO to set up therapy for Mon or next week. Pt states she would like to have her therapy at [facility] and prefers afternoons. Pt states no further concerns/needs. CM to follow. Advised pt to ask CM if any further question/concerns/needs arise, voices understanding. Pt Goal: Home with outpt therapy Plan: Home with outpt therapy
--- NOTE | 2023-04-29 11:08 | CASEMGMT ---
MIKE CM in to discuss LINDSAY form with patient. RN CM explained LINDSAY form, patient voiced understanding. Pt signed form and filed in chart. Pt provided with a copy of signed LINDSAY form. Patient had no further questions or concerns at this time.
[2023-04-29] MEDS: Ferrous Sulfate 325 MG Tablet PO (12:22)
[2023-04-29 13:28] VITALS: BP 146/54; PULSE 87; RESP 16; TEMP 36.8; O2SAT 97
== END 2023-04-29 14:31 | disposition home or self-care (01) ==
LOC: SDC 09:34 → MS3 09:34
PROVIDERS: Anesthesiology; Admitting Provider Specialist; PCP Family Medicine; Referring Provider Specialist; Visit Provider Specialist
PROC: (CPT 27284; principal; 2023-04-28 07:05)
DX: S72.044A Nondisplaced fracture of base of neck of right femur, initial encounter for closed fracture (principal); M16.11 Unilateral primary osteoarthritis, right hip; Y93.H9 Activity, other involving exterior property and land maintenance, building and construction; W19.XXXA Unspecified fall, initial encounter; Y92.008 Other place in unspecified non-institutional (private) residence as the place of occurrence of the external cause; E78.00 Pure hypercholesterolemia, unspecified; Z79.899 Other long term (current) drug therapy; R03.0 Elevated blood-pressure reading, without diagnosis of hypertension
CPT/HCPCS: 27130; 01214; 36415; 73501; 73502; 76000; 80048; 82040; 82962; 83036; 83735; 85025; 85027; 87081; 88305; 88311; 93005; 94668; 96361; 96365; 96366; 96375; 97110; 97162; 97166; 97530; 97535; 99221; 99252; C1776; J7050; J7120; G0378; G0463; J2405; J3475

== ENCOUNTER → 2023-05-17 | Outpatient (CLI) | payer MEDICARE, SELFPAY ==
[2023-05-17 10:58] LABS: Basophil# 0.06 X10^3/uL; Eosinophils% 1.6 % (0-5); Hematocrit 35.7 % (37-47); Hemoglobin 11.1 g/dL (12.0-15.0); Lymphocyte % 26.1 % (19-41); Mean Corp Hgb Conc 31.1 g/dL (32-36); Mean Corpuscular Volume 99.7 fL (81-99); Monocyte# 0.38 X10^3/uL; Monocyte% 6.2 % (0-10); NRBC Flagged by Analyzer 0 % (0-5); Neutrophil # 3.98 X10^3/uL (2.7-7.7); Neutrophil % 64.9 % (47-70); Platelet Count 546 K/mm3 (150-450); RBC Distribution Width CV 13.2 % (11.6-14.6); RBC Distribution Width SD 47.8 fl (35.1-43.9); Red Blood Count 3.58 M/mm3 (4.2-5.4); White Blood Count 6.1 K/mm3 (4.4-11.0)
== END | disposition home or self-care (01) ==
LOC: MFPLAB 09:15
PROVIDERS: PCP Family Medicine; Visit Provider Family Medicine
DX: R55 Syncope and collapse (principal)
CPT/HCPCS: 36415; 85025

== ENCOUNTER → 2023-06-09 | Outpatient (CLI) | payer MEDICARE, SELFPAY ==
[2023-06-09 17:33] LABS: Absolute Lymphocyte Count 2.27 X10^3/uL (0.83-4.51); Absolute Neutrophil Count 4.1 X10^3/uL (2.0-7.7); Basophil# 0.06 X10^3/uL; Basophil% 0.8 % (0-1); Eosinophil# 0.12 X10^3/uL; Eosinophils% 1.7 % (0-5); Hematocrit 37.4 % (37-47); Hemoglobin 11.7 g/dL (12.0-15.0); Lymphocyte # 2.27 X10^3/ul (0.83-4.51); Lymphocyte % 31.7 % (19-41); Mean Corp Hgb Conc 31.3 g/dL (32-36); Mean Corpuscular Hgb 31.1 pg (27.0-32.0); Mean Corpuscular Volume 99.5 fL (81-99); Mean Platelet Vol. 9.8 fl (6.2-12.0); Monocyte% 8.4 % (0-10); NRBC Flagged by Analyzer 0 % (0-5); Neutrophil # 4.08 X10^3/uL (2.7-7.7); Neutrophil % 57.1 % (47-70); Platelet Count 352 K/mm3 (150-450); RBC Distribution Width CV 13.1 % (11.6-14.6); RBC Distribution Width SD 48.1 fl (35.1-43.9); Red Blood Count 3.76 M/mm3 (4.2-5.4); White Blood Count 7.2 K/mm3 (4.4-11.0)
[2023-06-09 18:11] LABS: Ferritin 76 ng/mL (8-252); Iron 48 ug/dL (50-170); Iron Binding Capacity,Total 365 ug/dL (250-450); PERCENT IRON SATURATION 13.2 % (15.0-55.0)
== END | disposition home or self-care (01) ==
LOC: MFPLAB 16:41
PROVIDERS: PCP Family Medicine; Visit Provider Family Medicine
DX: D64.9 Anemia, unspecified (principal)
CPT/HCPCS: 36415; 82728; 83540; 83550; 85025

== ENCOUNTER → 2023-09-13 | Outpatient (CLI) | payer MEDICARE, SELFPAY ==
[2023-09-13 10:33] LABS: Hematocrit 41.2 % (37-47); Hemoglobin 12.9 g/dL (12.0-15.0); Mean Corp Hgb Conc 31.3 g/dL (32-36); Mean Corpuscular Hgb 30.5 pg (27.0-32.0); Mean Corpuscular Volume 97.4 fL (81-99); Mean Platelet Vol. 10.7 fl (6.2-12.0); Platelet Count 291 K/mm3 (150-450); RBC Distribution Width CV 13.8 % (11.6-14.6); RBC Distribution Width SD 48.9 fl (35.1-43.9); Red Blood Count 4.23 M/mm3 (4.2-5.4)
[2023-09-13 10:51] LABS: ALB/GLOB Ratio 1.2 RATIO (0.9-2.4); AST(SGOT) 17 U/L (15-37); Alanine Aminotransfer ALT/SGPT 16 U/L (13-56); Albumin, Serum 3.9 g/dL (3.2-5.0); Alkaline Phosphatase 88 U/L (45-117); Anion Gap 7 (5-15); BUN 10 mg/dL (7-18); Calcium,Total 9.4 mg/dL (8.5-10.1); Chloride 106 mmol/L (98-107); Cholesterol 194 mg/dL (200); Creatinine, Serum 0.71 mg/dL (0.55-1.02); EST Glomerular Filtration Rate 85 mL/min (>60); Est Glom Filt Rate - Afr Amer 102 mL/min (>60); Globulin 3.3 g/dL (2.2-4.2); Glucose 97 mg/dL (74-106); High Density Lipoprotein 68 mg/dL; Potassium 3.9 mmol/L (3.5-5.1); Protein, Total 7.2 g/dL (6.4-8.2); Sodium Level 140 mmol/L (136-145); Triglycerides 118 mg/dL; Very Low Density Lipoprotein 24 mg/dL (5-40)
== END | disposition home or self-care (01) ==
LOC: MTLAB 08:46
PROVIDERS: PCP Family Medicine; Referring Provider Family Medicine; Visit Provider Family Medicine
DX: D64.9 Anemia, unspecified (principal); E78.00 Pure hypercholesterolemia, unspecified
CPT/HCPCS: 36415; 80053; 80061; 85027

== ENCOUNTER → 2023-09-23 | Outpatient (CLI) | payer MEDICARE, SELFPAY ==
--- NOTE | 2023-09-23 14:58 | BI_ITS ---
MAMMOGRAPHY - BILATERAL SCREENING REASON FOR EXAM: Female, 77 years old. Routine annual screening examination. PERTINENT HISTORY: Mother with breast cancer. TECHNIQUE: Digital bilateral breast pipe (3D mammographic acquisition) in the CC and MLO projections. 2-D mediolateral oblique (MLO) and craniocaudad (CC) views of both breasts were obtained. CAD: Full Field Digital Mammography with Computer Added Detection was performed. COMPARISON: Comparison is made with prior study dated May 14, 2022. FINDINGS: Breast Composition: There are scattered areas of fibroglandular density. There are no dominant masses or suspicious calcifications. No other significant abnormalities are identified. There has been no significant change since the prior study. BI/SCRN MAMM (CAD)W/PIPE BILAT IMPRESSION: Stable bilateral screening mammogram. Yearly follow-up mammogram recommended. (A) ASSESSMENT CATEGORY: BIRADS Category 1: Negative. A letter regarding these results will be sent to the patient by the facility within 30 days. Approximately 10% of breast cancers are not detected by mammography. A normal mammogram should not delay biopsy of a clinically suspicious abnormality. [id number] Electronically Signed: Jose C Martinez MD at 8:29 EST ,
== END | disposition home or self-care (01) ==
LOC: OPBI 14:57
PROVIDERS: PCP Family Medicine; Referring Provider Family Medicine; Visit Provider Family Medicine
DX: Z12.31 Encounter for screening mammogram for malignant neoplasm of breast (principal); Z80.3 Family history of malignant neoplasm of breast
CPT/HCPCS: 77063; 77067

== ENCOUNTER → 2024-03-13 | Outpatient (CLI) | payer MEDICARE, SELFPAY ==
[2024-03-13 10:19] LABS: Absolute Lymphocyte Count 1.94 X10^3/uL (0.83-4.51); Absolute Neutrophil Count 3.9 X10^3/uL (2.0-7.7); Basophil# 0.05 X10^3/uL; Basophil% 0.8 % (0-1); Eosinophil# 0.09 X10^3/uL; Eosinophils% 1.4 % (0-5); Hematocrit 40.1 % (37-47); Hemoglobin 12.9 g/dL (12.0-15.0); Lymphocyte # 1.94 X10^3/ul (0.83-4.51); Lymphocyte % 30.1 % (19-41); Mean Corp Hgb Conc 32.2 g/dL (32-36); Mean Corpuscular Hgb 31.6 pg (27.0-32.0); Mean Corpuscular Volume 98.3 fL (81-99); Mean Platelet Vol. 10.4 fl (6.2-12.0); Monocyte# 0.48 X10^3/uL; Monocyte% 7.4 % (0-10); NRBC Flagged by Analyzer 0 % (0-5); Neutrophil # 3.88 X10^3/uL (2.7-7.7); Neutrophil % 60.1 % (47-70); Platelet Count 300 K/mm3 (150-450); RBC Distribution Width CV 13.4 % (11.6-14.6); Red Blood Count 4.08 M/mm3 (4.2-5.4); White Blood Count 6.5 K/mm3 (4.4-11.0)
[2024-03-13 11:07] LABS: ALB/GLOB Ratio 1.2 RATIO (0.9-2.4); AST(SGOT) 20 U/L (15-37); Alanine Aminotransfer ALT/SGPT 16 U/L (13-56); Albumin, Serum 3.8 g/dL (3.2-5.0); Alkaline Phosphatase 82 U/L (45-117); Anion Gap 4 (5-15); BUN 9 mg/dL (7-18); BUN/Creat Ratio 12.5 RATIO (10-20); Calcium,Total 9.6 mg/dL (8.5-10.1); Chloride 109 mmol/L (98-107); Cholesterol 201 mg/dL (200); Creatinine, Serum 0.72 mg/dL (0.55-1.02); EST Glomerular Filtration Rate 84 mL/min (>60); Est Glom Filt Rate - Afr Amer 101 mL/min (>60); Globulin 3.2 g/dL (2.2-4.2); Glucose 92 mg/dL (74-106); High Density Lipoprotein 64 mg/dL; Sodium Level 140 mmol/L (136-145); Triglycerides 133 mg/dL; Very Low Density Lipoprotein 27 mg/dL (5-40)
== END | disposition home or self-care (01) ==
PROVIDERS: PCP Family Medicine; Referring Provider Family Medicine; Visit Provider Family Medicine
DX: G25.81 Restless legs syndrome (principal); E78.00 Pure hypercholesterolemia, unspecified
CPT/HCPCS: 36415; 80053; 80061; 85025

== ENCOUNTER → 2024-05-12 | Outpatient (CLI) | payer MEDICARE, SELFPAY ==
[2024-05-12 15:16] LABS: Absolute Lymphocyte Count 1.74 X10^3/uL (0.83-4.51); Absolute Neutrophil Count 4.5 X10^3/uL (2.0-7.7); Basophil# 0.04 X10^3/uL; Basophil% 0.6 % (0-1); Eosinophil# 0.06 X10^3/uL; Eosinophils% 0.9 % (0-5); Hematocrit 40.7 % (37-47); Hemoglobin 12.7 g/dL (12.0-15.0); Lymphocyte # 1.74 X10^3/ul (0.83-4.51); Mean Corp Hgb Conc 31.2 g/dL (32-36); Mean Corpuscular Hgb 30.7 pg (27.0-32.0); Mean Corpuscular Volume 98.3 fL (81-99); Mean Platelet Vol. 10.1 fl (6.2-12.0); Monocyte# 0.37 X10^3/uL; Monocyte% 5.5 % (0-10); NRBC Flagged by Analyzer 0 % (0-5); Neutrophil # 4.45 X10^3/uL (2.7-7.7); Neutrophil % 66.7 % (47-70); Platelet Count 318 K/mm3 (150-450); RBC Distribution Width CV 13.1 % (11.6-14.6); RBC Distribution Width SD 47.1 fl (35.1-43.9); Red Blood Count 4.14 M/mm3 (4.2-5.4); White Blood Count 6.7 K/mm3 (4.4-11.0)
[2024-05-12 15:49] LABS: Anion Gap 6 (5-15); BUN 10 mg/dL (7-18); BUN/Creat Ratio 14.8 RATIO (10-20); Calcium,Total 9.9 mg/dL (8.5-10.1); Chloride 109 mmol/L (98-107); Creatinine, Serum 0.68 mg/dL (0.55-1.02); EST Glomerular Filtration Rate 90 mL/min (>60); Est Glom Filt Rate - Afr Amer 109 mL/min (>60); Glucose 96 mg/dL (74-106); Sodium Level 142 mmol/L (136-145)
== END | disposition home or self-care (01) ==
LOC: MFPLAB 12:13
PROVIDERS: PCP Family Medicine; Visit Provider Family Medicine
DX: R53.83 Other fatigue (principal)
CPT/HCPCS: 36415; 80048; 84443; 85025

== ENCOUNTER → 2024-06-01 | Outpatient (CLI) | payer MEDICARE, SELFPAY | END | disposition home or self-care (01) | LOC: MFPLAB 13:44 | PROVIDERS: PCP Family Medicine; Visit Provider Family Medicine | DX: N39.0 Urinary tract infection, site not specified (principal) | CPT/HCPCS: 87086; 87088 ==

== ENCOUNTER → 2024-09-04 | Outpatient (CLI) | payer MEDICARE, SELFPAY ==
[2024-09-04 12:21] LABS: Absolute Neutrophil Count 4.4 X10^3/uL (2.0-7.7); Basophil# 0.05 X10^3/uL; Basophil% 0.7 % (0-1); Eosinophil# 0.06 X10^3/uL; Eosinophils% 0.8 % (0-5); Hematocrit 40.6 % (37-47); Hemoglobin 12.7 g/dL (12.0-15.0); Mean Corp Hgb Conc 31.3 g/dL (32-36); Mean Corpuscular Hgb 30.8 pg (27.0-32.0); Mean Corpuscular Volume 98.3 fL (81-99); Mean Platelet Vol. 10.6 fl (6.2-12.0); Monocyte# 0.61 X10^3/uL; Monocyte% 8.5 % (0-10); NRBC Flagged by Analyzer 0 % (0-5); Neutrophil # 4.41 X10^3/uL (2.7-7.7); Neutrophil % 61.7 % (47-70); Platelet Count 300 K/mm3 (150-450); RBC Distribution Width CV 13.2 % (11.6-14.6); RBC Distribution Width SD 47.4 fl (35.1-43.9); Red Blood Count 4.13 M/mm3 (4.2-5.4); White Blood Count 7.2 K/mm3 (4.4-11.0)
== END | disposition home or self-care (01) ==
LOC: MFPLAB 10:59
PROVIDERS: PCP Family Medicine; Visit Provider Family Medicine
DX: D64.9 Anemia, unspecified (principal)
CPT/HCPCS: 36415; 85025

== ENCOUNTER → 2024-09-25 | Outpatient (CLI) | payer MEDICARE, SELFPAY ==
--- NOTE | 2024-09-25 12:46 | BI_ITS ---
MAMMOGRAPHY - BILATERAL SCREENING REASON FOR EXAM: Female, 78 years old. Routine annual screening examination. PERTINENT HISTORY: Mother with breast cancer. TECHNIQUE: Digital bilateral breast pipe (3D mammographic acquisition) in the CC and MLO projections. 2-D mediolateral oblique (MLO) and craniocaudad (CC) views of both breasts were obtained. CAD: Full Field Digital Mammography with Computer Added Detection was performed. COMPARISON: Comparison is made with prior study September 23, 2023 and May 14, 2022. FINDINGS: Breast Composition: There are scattered areas of fibroglandular density. There are no dominant masses or suspicious calcifications. No other significant abnormalities are identified. There has been no significant change since the prior study. BI/SCRN MAMM (CAD)W/PIPE BILAT IMPRESSION: Stable bilateral screening mammogram. Yearly follow-up mammogram recommended. (A) ASSESSMENT CATEGORY: BIRADS Category 1: Negative. A letter regarding these results will be sent to the patient by the facility within 30 days. Approximately 10% of breast cancers are not detected by mammography. A normal mammogram should not delay biopsy of a clinically suspicious abnormality. [id number] Electronically Signed: Jose C Martinez MD at 14:31 EST ,
== END | disposition home or self-care (01) ==
LOC: OPBI 12:44
PROVIDERS: PCP Family Medicine; Referring Provider Family Medicine; Visit Provider Family Medicine
DX: Z12.31 Encounter for screening mammogram for malignant neoplasm of breast (principal); Z80.3 Family history of malignant neoplasm of breast
CPT/HCPCS: 77063; 77067

== ENCOUNTER → 2025-10-09 | Outpatient (CLI) | payer MEDICARE, SELFPAY ==
--- NOTE | 2025-10-09 12:30 | BI_ITS ---
EXAM: SCRN MAMM (CAD)W/PIPE BILAT DATE: 10/09/2025 CLINICAL HISTORY: F, Age 79 y/o , SCREENING Mother with breast cancer. TECHNIQUE: Procedure Code: [id number] Modality: MG Procedure: SCRN MAMM (CAD)W/PIPE BILAT COMPARISON: Prior exam(s) dated September 25, 2024.. FINDINGS: TISSUE DENSITY: There are scattered areas of fibroglandular density. Bilateral Breast Mammographic Findings: No significant masses, calcifications or other abnormalities are identified. No suspicious masses, areas of developing architectural distortion, or suspicious calcifications. There has been no significant interval change. BI/SCRN MAMM (CAD)W/PIPE BILAT IMPRESSION: Stable bilateral screening mammogram. OVERALL FINAL ASSESSMENT BI-RADS 1: NEGATIVE. RECOMMENDATION: Routine annual follow-up in 1 Year Additional Recommendation none A letter with findings and recommendations will be mailed to the patient. Reading Location: [facility]
== END | disposition home or self-care (01) ==
LOC: OPBI 12:28
PROVIDERS: PCP Family Medicine; Referring Provider Family Medicine; Visit Provider Family Medicine
DX: Z12.31 Encounter for screening mammogram for malignant neoplasm of breast (principal)
CPT/HCPCS: 77063; 77067